=== PATIENT | male | born 1935 | race Caucasian/White ===

== ENCOUNTER 2018-10-19 00:22 | Inpatient (IN) | payer MEDICARE, BC ==
[2018-10-19 00:41] LABS: #Basophils 0.1 thou/uL (0.0-0.2); #Eosinphils 0.1 thou/uL (0.0-0.7); #Lymphocytes 4.3 thou/uL (1.20-3.40); #Monocytes 0.8 thou/uL (0.11-0.59); %Basophils 0.8 % (0.0-1.0); %Eosinophils 0.4 % (0.0-10.0); %Lymphocytes 28.3 % (21.0-51.0); %Monocytes 5.1 % (0.0-10.0); %Neutrophils 65.4 % (42.0-75.0); Hemoglobin 13.7 g/dL (14.0-18.0); Mean Corpuscular Hemoglobin 28.6 pg (27.0-31.0); Mean Corpuscular Volume 89.6 fL (78.0-98.0); Mean Platelet Volume 7.1 fL (7.4-10.4); Platelet Count 209 thou/uL (130-400); RBC Distribution Width 12.4 % (11.5-14.5); Red Blood Cell (RBC) Count 4.77 mill/uL (4.70-6.10); White Blood Cell (WBC) Count 15.3 thou/uL (4.8-10.8)
[2018-10-19 00:57] LABS: ALT (SGPT) 10 U/L (8-55); AST (SGOT) 11 U/L (5-34); Albumin 4.5 g/dL (3.4-4.8); Alkaline Phosphatase 52 U/L (40-150); Anion Gap 14 mmol/L (10-20); BUN (Urea Nitrogen) 17 mg/dL (8.4-25.7); Bilirubin, Total 0.4 mg/dL (0.2-1.2); Calc. Creatinine Clearance 0 mL/min (70-130); Calcium 9.9 mg/dL (7.8-10.44); Carbon Dioxide 25 mmol/L (23-31); Chloride 102 mmol/L (98-107); Estimated GFR-MDRD Greater than 90; Globulin 2.9 g/dL (2.4-3.5); Glucose 119 mg/dL (83-110); Lipase 34 U/L (8-78); Potassium 4.5 mmol/L (3.5-5.1); Protein, Total 7.4 g/dL (5.8-8.1); Sodium 136 mmol/L (136-145)
[2018-10-19] MEDS ORDERED: Lidocaine Viscous Sol 2% 15 ml UD Cup ONE (05:04)
[2018-10-19] MEDS ORDERED: Benzocaine 20% Spray 60 ML CAN ONE (05:04)
--- NOTE | 2018-10-19 05:05 | PDOC.FPRHP ---
- History of Present Illness Chief Complaint: abdominal pain History of Present Illness: 83yo M with pmh of CAD s/p CABG and several abdominal surgeries presents for 6 hour hx of acute onset increasing abdominal pain. Pain is diffuse but with concentration in midline and LLQ. Pt has related nausea but no vomiting, additionally he reprts he feels his abdomen is distented and he has not had a bowel mvmt or passed gas for 2-3 days. ED Course: imaging shows SBO, Surgery called from OR, morphine administered - Allergies/Adverse Reactions Allergies Allergy/AdvReac Type Severity Reaction Status Date / Time No Known Drug Allergies Allergy Verified 10/19/18 07:49 - Home Medications Medication Instructions Recorded Confirmed Type Calcium Carbonate/Vitamin D3 1 tablet PO DAILY 12/08/16 10/19/18 History [Calcium 250 + Vitamin D] Multivitamin/Iron/Folic Acid 1 tablet PO DAILY 12/08/16 10/19/18 History [Centrum Complete Multivitamin] Amlodipine [Norvasc] 5 mg PO DAILY 10/19/18 10/19/18 History Ascorbic Acid [Vitamin C] 1,000 mg PO BID 10/19/18 10/19/18 History Carvedilol 3.125 mg PO BID 10/19/18 10/19/18 History Chlorpheniramine Maleate 4 mg PO QID PRN 10/19/18 10/19/18 History [Chlortabs] Colestipol HCl 1 mg PO DAILY 10/19/18 10/19/18 History Docusate Sodium 100 mg PO DAILY 10/19/18 10/19/18 History Losartan [Cozaar] 25 mg PO BID 10/19/18 10/19/18 History Pravastatin Sodium 20 mg PO HS 10/19/18 10/19/18 History Psyllium Husk [Metamucil] 1 tab PO DAILY 10/19/18 10/19/18 History Simethicone [Gas-X Extra Strength] 125 mg PO QID 10/19/18 10/19/18 History Tamsulosin HCl 0.4 mg PO BID 10/19/18 10/19/18 History guaiFEN/Phenyleph/Acetaminophn 1 - 2 tab PO Q4H PRN 10/19/18 10/19/18 History [Tylenol Sinus Severe Caplet] - History PMHx:SBO (11/2017),CAD, HLD, OA, GERD, chronic back pain, HTN PSHx: laparoscopic lysis of peritoneal adhesions (11/2017),double hernia (10/2017) , hip replacement (05/2010), cholecystectomy (2002), bilateral cataracts, CAD s/ p stents and CABG 4(V)(2006), Right colectomy with reanastomosis 2/2 diverticular bleed? (11/2016), prostatectomy(2003), back surgery (), right knee replacement ) FHx:Father: colon cancer, mother: DM Social:4 oz wine every night, quit smoking 35 years ago, Denies drugs - Review of Systems General: denies: fever/chills, fatigue Eyes: denies: eye pain, vision changes ENT: denies: nasal congestion, rhinorrhea Respiratory: denies: cough, shortness of breath Cardiovascular: denies: chest pain, palpitation Gastrointestinal: reports: nausea, constipation. denies: vomiting, diarrhea, GI bleeding Genitourinary: denies: incontinence, dysuria Skin: denies: rashes, lesions Musculoskeletal: denies: tenderness, stiffness Neurological: denies: syncope, seizure Psychological: denies: anxiety, depression - Vital signs BP: 168/91, Pulse: 93, Resp: 18, O2 sat: 97 on Room Air, Time: 10/19/2018 05:30 - Physical Exam Constitutional: NAD, awake, alert and oriented, other (appears fatigued) HEENT: EOMI, grossly normal vision, grossly normal hearing Neck: supple, trachea midline Chest: no-tender to palpation Heart: RRR, normal S1/S2 Lungs: no respiratory distress, good air movement Abdomen: soft, bowel sounds present, other (impressive TTP in midline and LLQ, modest ttp diffusely) Musculoskeletal: normal structure, normal tone Neurological: no focal deficit, normal sensation Skin: good turgor, capillary refill <2 seconds Heme/Lymphatic: no purpura, no petechia Psychiatric: normal mood and affect, good judgment and insight FMR H&P: Results - Labs Result Diagrams: 10/19/18 00:35 10/19/18 00:35 Lab results: WBC 15.3 thou/uL (4.8-10.8) H 10/19/18 00:35 Hgb 13.7 g/dL (14.0-18.0) L 10/19/18 00:35 Hct 42.7 % (42.0-52.0) 10/19/18 00:35 MCV 89.6 fL (78.0-98.0) 10/19/18 00:35 Plt Count 209 thou/uL (130-400) 10/19/18 00:35 Neutrophils % 65.4 % (42.0-75.0) 10/19/18 00:35 Sodium 136 mmol/L (136-145) 10/19/18 00:35 Potassium 4.5 mmol/L (3.5-5.1) 10/19/18 00:35 Chloride 102 mmol/L (98-107) 10/19/18 00:35 Carbon Dioxide 25 mmol/L (23-31) 10/19/18 00:35 BUN 17 mg/dL (8.4-25.7) 10/19/18 00:35 Creatinine 0.79 mg/dL (0.7-1.3) 10/19/18 00:35 Glucose 119 mg/dL (83-110) H 10/19/18 00:35 Calcium 9.9 mg/dL (7.8-10.44) 10/19/18 00:35 Total Bilirubin 0.4 mg/dL (0.2-1.2) 10/19/18 00:35 AST 11 U/L (5-34) 10/19/18 00:35 ALT 10 U/L (8-55) 10/19/18 00:35 Alkaline Phosphatase 52 U/L (40-150) 10/19/18 00:35 Serum Total Protein 7.4 g/dL (5.8-8.1) 10/19/18 00:35 Albumin 4.5 g/dL (3.4-4.8) 10/19/18 00:35 Lipase 34 U/L (8-78) 10/19/18 00:35 FMR H&P: A/P - Problem List (1) SBO (small bowel obstruction) Current Visit: Yes Status: Acute Code(s): K56.609 - UNSP INTESTNL OBST, UNSP TO PARTIAL VERSUS COMPLETE OBST (2) BPH (benign prostatic hyperplasia) Current Visit: Yes Status: Acute Code(s): N40.0 - BENIGN PROSTATIC HYPERPLASIA WITHOUT LOWER URINRY TRACT SYMP (3) CAD (coronary artery disease) Current Visit: No Status: Chronic Code(s): I25.10 - ATHSCL HEART DISEASE OF [place] CORONARY ARTERY W/O ANG PCTRS Qualifiers: Coronary Disease-Associated Artery/Lesion type: bypass graft [place] vs. transplanted heart: [place] heart Associated angina: without angina Qualified Code(s): I25.810 - Atherosclerosis of coronary artery bypass graft(s) without angina pectoris (4) GERD (gastroesophageal reflux disease) Current Visit: No Status: Chronic Code(s): K21.9 - GASTRO-ESOPHAGEAL REFLUX DISEASE WITHOUT ESOPHAGITIS (5) Hypertension Current Visit: No Status: Chronic Code(s): I10 - ESSENTIAL (PRIMARY) HYPERTENSION Qualifiers: Hypertension type: essential hypertension Qualified Code(s): I10 - Essential (primary) hypertension - Plan SBO A- evidence on imaging, surgery consulted from ED. Recs are much appreciated. P- NPO -NG tube -zofran prn -morphine prn -f/u surgery recs HTN -home meds HLD -home meds BPH -home meds CAD s/p CABG -home meds CODE: DNAR FMR H&P: Upper Level - Pertinent history 83 yr old male with PMH of right colectomy 2/2 suspected diverticular bleed, CAD s/p CABG, After supper last night (about 12 hours ago) he started to get severe abdominal pain. It felt similar to last SBO. Feels nauseated. No vomited. Last BM was 2 days ago. Belching but not pasisng flatus. His abdominal hx includes right colectomy after presumed diverticular bleed in 2016 and SBO with laparoscopic lysis of adhesions in 11/2017. - Pertinent findings Gen: no acute distress Heart: RRR, no M/R/G Lungs: CTAB, no W/R/R Abd: distended, tympanotic, hypoactive bowel sounds, tender worse in the mid periumbilical region. Ext: No edema in BLE Neuro: no focal deficits CT Abd: extensive SBO - Plan Date/Time: 10/19/18 0505 I, [Gladys Hardy], have evaluated this patient and agree with findings/plan as outlined by product managent intern resident. Pertinent changes/additions are listed here. SBO -NG tube to suction -strict NPO -Gen surg consulted from ER -pain control with morphine PRN -most likely 2/2 adhesions from prior abdominal surgeries HTN -cont home meds CAD -cont statin and b nabeel and arb Code: DNR as discussed with patient and
[2018-10-19] MEDS ORDERED: Ondansetron PF 4 MG/2 ML Vial ONE (05:40)
[2018-10-19] MEDS ORDERED: Morphine 4 MG/ML VIAL ONE (05:40)
[2018-10-19 05:44] LABS: Bilirubin Negative (Negative); Blood, Urine Trace (Negative); Clarity CLEAR (Clear); Glucose, Urine (Dipstick) Negative (Negative); Leukocyte Negative (Negative); Nitrite Negative (Negative); Protein, Urine (Dipstick) Negative (Neg-Trace); Urobilinogen 0.2 mg/dL (0.2-1.0); pH, Urine 5.5 (5.0-9.0)
[2018-10-19 05:47] LABS: Bacteria/HPF None Seen HPF (None Seen); Hyaline Casts/LPF 0-3 HYALINE CAST LPF (0-3 Hyaline); Pathc Cast-AUWi Flag 0.27 (0-2.49); Squamous Epithelial None Seen HPF (0-3); WBC/HPF None Seen HPF (0-3)
[2018-10-19 05:49] LABS: Specific Gravity, Urine 1.064 (1.002-1.036)
--- NOTE | 2018-10-19 07:57 | RAD ---
KUB: COMPARISON: None. HISTORY: NG Tube placement. FINDINGS: A single high KUB shows an NG tube in the stomach. There are a few air-filled loops of small bowel i n the visualized upper abdomen. This is a nonspecific bowel gas pattern. Hardware is seen in the spine. The patient is status post sternotomy. IMPRESSION: Nasogastric tube located in the stomach. POS: [facility]
--- NOTE | 2018-10-19 08:23 | CT ---
PRELIMINARY REPORT/[facility]/EMERGENCY AFTER HOURS PROCEDURE: EXAM: CT Abdomen and Pelvis With Contrast EXAM DATE/TIME: 10/19/2018 3:15 AM CLINICAL HISTORY: 83 years old, male; Abdominal pain; Localized; Upper; Prior surgery; Patient HX: Er 4. 83 y/o m, with h/o sbo, presents to ED C/O abd pain and bloating since Thursday, with greatest severity of pain to ep igastrium and ruq. PT notes associated nausea and incr belching. His last bm reported to be "a few da ys ago. " denies vomiting, fever. He is still passing gas. Surgical HX of small bowel obstruction - l aproscopic lysis of adhesions, colonoscopy, surgical history of cholecystectomy, hernia repair, surgical history of prostatectomy, TECHNIQUE: Imaging protocol: Axial computed tomography images of the abdomen and pelvis with intravenous contras t. Coronal reformatted images were created and reviewed. COMPARISON: No relevant prior studies available. FINDINGS: ABDOMEN: Liver: No mass. Gallbladder and bile ducts: Surgical changes of cholecystectomy. No ductal dilation. Pancreas: No mass or ductal dilation. Spleen: No mass. Adrenals: No mass. Kidneys and ureters: Multiple bilateral renal hypodensities, likely cysts. No hydronephrosis. Stomach and bowel: Incidental duodenal diverticulum. Dilated loops of small bowel up to 4.4 cm. The transition point is in the right abdomen (series 601, image 31). Surgical changes of right hemico lectomy. Marked colonic diverticulosis. Appendix: The appendix has been removed. PELVIS: Bladder: Normal. Reproductive: Normal. ABDOMEN and PELVIS: Intraperitoneal space: Trace abdominal and pelvic fluid. Bones/joints: Posterior pedicular screws L1 L2-L3 and L4. Left hip arthroplasty. Soft tissues: Laxity of the anterior abdominal wall. Vasculature: Moderate atherosclerosis of the aorta without aneurysm. Lymph nodes: No lymphadenopathy. IMPRESSION: Small bowel obstruction with loops of bowel dilated up to 4.4 cm. Thank you for allowing us to participate in the care of your patient. Dictated and Authenticated by: Mery Luna MD 10/19/2018 4:30 AM Central Time ([place] & [place]) FINAL REPORT EMERGENCY AFTER HOURS ABDOMEN AND PELVIC CT SCAN WITH IV CONTRAST: Date: 10/19/18 Time: 0317 hours FINDINGS/IMPRESSION: Extensive small bowel obstruction. Status post right hemicolectomy and ileocolonic anastomosis. Exten sive colonic diverticulosis without acute diverticulitis. Multiple renal cysts. Multiple pedicle scre ws stabilizing the spine. Very lax anterior and anterolateral abdominal wall. Other findings as above . Report in agreement with preliminary report given on-call by [facility]. POS: [facility]
[2018-10-19] MEDS: Lactated Ringer's 1,000 ML IV SCH ×3 (08:41→23:48)
--- NOTE | 2018-10-19 09:57 | PDOC.EVN ---
Event Note - Event Note Event Note: consult dictated. Plan non-operative management first. NG, NPO. Small bowel follow through on if not improved.
--- NOTE | 2018-10-19 10:23 | CON ---
DATE OF CONSULTATION: 10/19/2018 CHIEF COMPLAINT: Small bowel obstruction. HISTORY OF PRESENT ILLNESS: This is an 83-year-old male who presents with a history of multiple abdominal operations. He is status post laparoscopic right colectomy by Dr. Rivas. Subsequently had incisional hernia repair and hiatal hernia repair by Dr. Marino over the [facility]. He presents with a few day history of increased abdominal bloating, soreness associated with nausea. Seen in emergency room, where a CAT scan revealed small bowel obstruction. His pain described as 3/10, diffuse, improves. His nausea has improved after NG tube placement. PAST MEDICAL HISTORY: Includes coronary artery disease, hypertension, arthritis, GERD, history of previous small bowel obstruction. PAST SURGICAL HISTORY: Includes laparoscopic lysis of adhesions, incisional hernia repair, hip replacement, cholecystectomy, cataracts, CABG, right colectomy, right knee replacement. FAMILY HISTORY: For GI malignancy only in the father. ALLERGIES: SEE LIST. MEDICINES: See list. SOCIAL HISTORY: Former smoker. One glass of wine daily. REVIEW OF SYSTEMS: 10-system review of systems is otherwise negative unless described above. PHYSICAL EXAMINATION: VITAL SIGNS: Blood pressure is 160/81, pulse 78, respirations 16. HEENT: Sclerae anicteric. Oropharynx clear. NECK: No lymphadenopathy. CHEST: Clear. HEART: Regular rate and rhythm. ABDOMEN: Soft. Diffuse mildly tender without guarding or rebound. Well-healed abdominal incisions. No obvious hernia. EXTREMITIES: No ischemia or edema to extremities. DIAGNOSTIC STUDIES: CT scan shows small bowel obstruction. ASSESSMENT: Small bowel obstruction. PLAN: Continue IV fluids, NG tube decompression for now. Small bowel follow-through within the next few days if does not resolve. No need for urgent operative intervention at this time. Job ID: [id number]
[2018-10-19] MEDS ORDERED: ISOVUE-370 76%-LOCM 1 ML ONE (10:24)
[2018-10-19] MEDS: Ondansetron PF 4 MG/2 ML Vial IVP PRN ×2 (12:12→17:11)
--- NOTE | 2018-10-19 14:05 | HP ---
HISTORY OF PRESENT ILLNESS: I have examined the patient. I have discussed the case with Dr. Giovanni Lynch and I agree with his assessment and plan. Mr. Parikh is a pleasant 83-year-old white man, who has had multiple previous abdominal surgeries. He presented to our institution with a 6-hour history of acute onset of increasing abdominal pain, as well as bloating and distention. He presented to the ER, where subsequent studies revealed the presence of small-bowel obstruction. He is admitted on IV fluids and NG suction. PHYSICAL EXAMINATION: VITAL SIGNS: His blood pressure is 160/90, his pulse rate is 88, respirations are 16. His O2 saturation on room air is 97%. GENERAL: He is awake, alert, in no distress. States he is "feeling better." EAR, NOSE, AND THROAT: Mucous membranes slightly dry. No erythema. No exudate. NECK: Supple. CARDIAC: PMI is in the fifth intercostal space, S4 apical gallop. No murmur or rub noted. LUNGS: Clear without rales, rhonchi, or wheezes. No respiratory distress present. ABDOMEN: Slightly distended and tympanic. Minimally tender with minimal guarding. Bowel sounds diminished. EXTREMITIES: No edema. NEUROLOGIC: Awake, alert, no focal deficits. LABORATORY DATA: [place] [address], hemoglobin 13.7, hematocrit 42.7 with an MCV of 89.6. Chemistries; sodium 136, potassium 4.5, chloride 102, bicarb 25, BUN 17, creatinine 0.79. Glucose 119. Liver enzymes are normal. Abdominal pelvic CT. IMPRESSION: Extensive small bowel obstruction, status post right hemicolectomy and ileocolonic anastomosis. Extensive colonic diverticulosis without evidence of acute diverticulitis. ASSESSMENT: Small-bowel obstruction. PLAN: Admit, IV fluids, NG suctioning, surgical consultation, though doubtful he needs surgery at this time. Job ID: [id number]
[2018-10-19] MEDS: Cepastat Lozenges 1 LOZ PO PRN (17:06)
[2018-10-19] MEDS: Morphine 4 MG/ML VIAL SLOW IVP PRN (23:52)
[2018-10-20 06:20] LABS: #Basophils 0.1 thou/uL (0.0-0.2); #Lymphocytes 3.3 thou/uL (1.20-3.40); #Monocytes 0.8 thou/uL (0.11-0.59); #Neutrophils 3.7 thou/uL (1.40-6.50); %Basophils 0.9 % (0.0-1.0); %Eosinophils 0.6 % (0.0-10.0); %Lymphocytes 41.8 % (21.0-51.0); %Monocytes 10.4 % (0.0-10.0); %Neutrophils 46.3 % (42.0-75.0); Hemoglobin 12.8 g/dL (14.0-18.0); Mean Corpuscular HGB CONC 32.1 g/dL (32.0-36.0); Mean Corpuscular Hemoglobin 29.1 pg (27.0-31.0); Mean Corpuscular Volume 90.7 fL (78.0-98.0); Mean Platelet Volume 7.4 fL (7.4-10.4); Platelet Count 177 thou/uL (130-400); RBC Distribution Width 12.2 % (11.5-14.5)
--- NOTE | 2018-10-20 06:35 | PDOC.FM ---
- Subjective Subjective: No overnight events. Denies pain. Has not had BM. Is passing a little bit of gas. Denies nausea or vomiting. Currently NPO. Ambulating. - Objective MAR Reviewed: Yes Vital Signs & Weight: Vital Signs (12 hours) Temp Pulse Resp BP Pulse Ox 10/20/18 04:19 97.8 F 82 18 149/74 H 94 L 10/19/18 23:52 98.5 F 80 16 168/78 H 94 L 10/19/18 21:00 98.8 F 84 18 158/78 H 94 L Weight Weight 82.554 kg I&O: 10/18/18 10/19/18 10/20/18 06:59 06:59 06:59 Intake Total 1440 Output Total 1050 Balance 390 Result Diagrams: 10/20/18 05:30 10/20/18 05:30 Phys Exam - Physical Examination Constitutional: NAD HEENT: moist MMs Neck: supple Respiratory: no wheezing, clear to auscultation bilateral Cardiovascular: RRR, no significant murmur Gastrointestinal: positive bowel sounds distended, tympanic to percussion. Mildly tender, no rebound/rigidity Musculoskeletal: no edema Neurological: moves all 4 limbs Psychiatric: normal affect, A&O x 3 Skin: no rash Dx/Plan (1) SBO (small bowel obstruction) Code(s): K56.609 - UNSP INTESTNL OBST, UNSP TO PARTIAL VERSUS COMPLETE OBST Status: Acute (2) BPH (benign prostatic hyperplasia) Code(s): N40.0 - BENIGN PROSTATIC HYPERPLASIA WITHOUT LOWER URINRY TRACT SYMP Status: Chronic (3) Osteoarthritis Code(s): M19.90 - UNSPECIFIED OSTEOARTHRITIS, UNSPECIFIED SITE Status: Chronic (4) CAD (coronary artery disease) Code(s): I25.10 - ATHSCL HEART DISEASE OF [place] CORONARY ARTERY W/O ANG PCTRS Status: Chronic Qualifiers: Coronary Disease-Associated Artery/Lesion type: bypass graft [place] vs. transplanted heart: [place] heart Associated angina: without angina Qualified Code(s): I25.810 - Atherosclerosis of coronary artery bypass graft(s) without angina pectoris (5) GERD (gastroesophageal reflux disease) Code(s): K21.9 - GASTRO-ESOPHAGEAL REFLUX DISEASE WITHOUT ESOPHAGITIS Status: Chronic (6) Hypertension Code(s): I10 - ESSENTIAL (PRIMARY) HYPERTENSION Status: Chronic Qualifiers: Hypertension type: essential hypertension Qualified Code(s): I10 - Essential (primary) hypertension - Plan Plan: 83yo male with pmh of HTN, HLD, CAD and BPH presents with SBO SBO - Gen Surg consulted, Dr Garcia. Apprec recs - NPO with NG tube placed - Nonsurgical management. If no improvement by , plan for small bowel follow through - Zofran prn - Morphine prn Microscopic hematuria - F/u with PCP outpt HTN - Resume home meds once tolerating PO HLD - Resume home meds once tolerating PO BPH - Resume home meds once tolerating PO CAD s/p CABG - Resume home meds once tolerating PO Code Status: DNAR DVT ppx: SCDs PCP: AKASH
[2018-10-20 06:43] LABS: Anion Gap 11 mmol/L (10-20); BUN (Urea Nitrogen) 17 mg/dL (8.4-25.7); Calc. Creatinine Clearance 88 mL/min (70-130); Calcium 9.1 mg/dL (7.8-10.44); Carbon Dioxide 28 mmol/L (23-31); Chloride 103 mmol/L (98-107); Estimated GFR-MDRD Greater than 90; Glucose 114 mg/dL (83-110); Sodium 138 mmol/L (136-145)
[2018-10-20] MEDS: Lactated Ringer's 1,000 ML IV SCH ×2 (09:21→19:03)
--- NOTE | 2018-10-20 10:18 | PDOC.GSPN ---
Surgery Progress Note: Subj - Subjective Patient reports: feels better Narrative: No nausea, passed gas Surgery Progress Note: Obj - Vital signs Vital signs: Vital Signs - Most Recent Temp Pulse Resp BP Pulse Ox 98.3 F 73 16 163/77 H 93 L 10/20/18 08:00 10/20/18 08:00 10/20/18 08:00 10/20/18 08:00 10/20/18 08:00 - Physical Exam General: no distress Cardiovascular: regular rate and rhythm Respiratory: clear to auscultation Abdomen: soft (mildly tender, less distended, positive bowel sounds) Surgery Progress Note: Results - Labs Result Diagrams: 10/20/18 05:30 10/20/18 05:30 Lab results: Laboratory Results - last 24 hr 10/20/18 10/20/18 05:30 05:30 WBC 8.0 RBC 4.40 L Hgb 12.8 L Hct 39.9 L MCV 90.7 MCH 29.1 MCHC 32.1 RDW 12.2 Plt Count 177 MPV 7.4 Neutrophils % 46.3 Lymphocytes % 41.8 Monocytes % 10.4 H Eosinophils % 0.6 Basophils % 0.9 Neutrophils # 3.7 Lymphocytes # 3.3 Monocytes # 0.8 H Eosinophils # 0.0 Basophils # 0.1 Sodium 138 Potassium 4.0 Chloride 103 Carbon Dioxide 28 Anion Gap 11 BUN 17 Creatinine 0.74 Estimated GFR (MDRD) Greater than 90 Glucose 114 H Calcium 9.1 Surgery Progress Note: A/P - Problem (1) SBO (small bowel obstruction) Current Visit: Yes Code(s): K56.609 - UNSP INTESTNL OBST, UNSP TO PARTIAL VERSUS COMPLETE OBST Status: Acute Assessment and Plan: Small bowel follow through today
[2018-10-20] MEDS ORDERED: MD-Gastroview 120 ML BOT ONE (11:09)
--- NOTE | 2018-10-20 12:21 | PRG ---
DATE OF SERVICE: 10/20/2018 Mr. Parikh continues to look and feel much better. He still has a tympanic bowel with mild distention. His pain has greatly diminished and his appetite is good. We will proceed with small bowel series today in anticipation of possibly feeding the patient later today with discharge in a day or two. Job ID: [id number]
[2018-10-20] MEDS: Ondansetron PF 4 MG/2 ML Vial IVP PRN ×2 (13:32→19:56)
[2018-10-20] MEDS: Morphine 4 MG/ML VIAL SLOW IVP PRN ×2 (13:32→19:56)
--- NOTE | 2018-10-20 17:13 | RAD ---
CT OF THE ABDOMEN AND PELVIS WITH IV CONTRAST INDICATION: Right lower quadrant abdominal pain COMPARISON: CT of the abdomen and pelvis dated October 30, 2017, May 03, 2016 and February 12, 2016. FINDINGS: ABDOMEN: Lung bases: Clear Liver: Small focal enhancing liver lesion measuring 2.1 cm of the medial left hepatic lobe is stable. Additional smaller enhancing lesion in segment 5 of the right hepatic lobe is not well seen. Small septated cyst of the left hepatic lobe is stable. Gallbladder: Normal appearing. Pancreas: Normal. Adrenal glands: Stable right adrenal adenoma. Left adrenal gland is normal-appearing. Spleen: Normal. Kidneys: Normal. Retroperitoneum of the upper abdomen: No lymphadenopathy or free fluid is identified. Pelvis: Small and large bowel: There is fluid density filling the cecum, ascending colon and portions of the transverse colon. There are a few scattered colonic diverticula without evidence of active diverticulitis. The small bowel is of normal caliber. There is a normal appendix in the right lower q uadrant of the abdomen. Reproductive structures: There is heterogeneous appearance of the uterus suspicious for underlying fi broid disease. Free fluid in pelvis: No free fluid is evident. Lymphadenopathy pelvis: No lymphadenopathy is evident. Vascular structures: Normal. Osseous structures: No acute osseous abnormality. No destructive osteolytic or osteoblastic lesion i s identified. There is scattered degenerative and osteoarthritic changes. IMPRESSION: 1. Fluid density seen involving the right hemicolon may reflect a component of a diarrheal state or m ild colitis. There is a normal appendix in the right lower quadrant of the abdomen. 2. Stable small focal enhancing lesion of the left hepatic lobe is suspicious for small flash filling hemangioma. Smaller lesion previously seen within segment 5 the right hepatic lobe is not well-seen on current examination. Suspected left hepatic lobe cyst is stable. 3. Stable right adrenal adenoma 4. Fibroid uterus 5. Colonic diverticulosis.
[2018-10-21] MEDS: Lactated Ringer's 1,000 ML IV SCH ×2 (03:34→11:08)
--- NOTE | 2018-10-21 06:30 | PDOC.FM ---
- Subjective Subjective: Pain is well controlled. Reports still passing some gas. Denies BM. Plan for surgery later this morning. Is using incentive spirometry. - Objective MAR Reviewed: Yes Vital Signs & Weight: Vital Signs (12 hours) Temp Pulse Resp BP Pulse Ox 10/21/18 04:00 98.4 F 95 20 158/89 H 92 L 10/21/18 00:00 97.4 F L 78 18 169/75 H 93 L 10/20/18 19:35 94 L 10/20/18 19:20 98.3 F 84 20 169/91 H 94 L Weight Admit Weight 82.554 kg Weight 82.809 kg I&O: 10/19/18 10/20/18 10/21/18 06:59 06:59 06:59 Intake Total 2880 2520 Output Total 1050 2300 Balance 1830 220 Result Diagrams: 10/20/18 05:30 10/20/18 05:30 Phys Exam - Physical Examination Constitutional: NAD HEENT: moist MMs Neck: supple Respiratory: no wheezing, clear to auscultation bilateral Cardiovascular: RRR, no significant murmur Gastrointestinal: soft, positive bowel sounds mild tenderness diffusely. Tympanitic to percussion Musculoskeletal: no edema Psychiatric: normal affect, A&O x 3 Skin: no rash Dx/Plan (1) SBO (small bowel obstruction) Code(s): K56.609 - UNSP INTESTNL OBST, UNSP TO PARTIAL VERSUS COMPLETE OBST Status: Acute (2) BPH (benign prostatic hyperplasia) Code(s): N40.0 - BENIGN PROSTATIC HYPERPLASIA WITHOUT LOWER URINRY TRACT SYMP Status: Chronic (3) Osteoarthritis Code(s): M19.90 - UNSPECIFIED OSTEOARTHRITIS, UNSPECIFIED SITE Status: Chronic (4) CAD (coronary artery disease) Code(s): I25.10 - ATHSCL HEART DISEASE OF [place] CORONARY ARTERY W/O ANG PCTRS Status: Chronic Qualifiers: Coronary Disease-Associated Artery/Lesion type: bypass graft [place] vs. transplanted heart: [place] heart Associated angina: without angina Qualified Code(s): I25.810 - Atherosclerosis of coronary artery bypass graft(s) without angina pectoris (5) GERD (gastroesophageal reflux disease) Code(s): K21.9 - GASTRO-ESOPHAGEAL REFLUX DISEASE WITHOUT ESOPHAGITIS Status: Chronic (6) Hypertension Code(s): I10 - ESSENTIAL (PRIMARY) HYPERTENSION Status: Chronic Qualifiers: Hypertension type: essential hypertension Qualified Code(s): I10 - Essential (primary) hypertension - Plan Plan: 83yo male with pmh of HTN, HLD, CAD and BPH presents with SBO SBO - Gen Surg consulted, Dr Garcia. Apprec recs - NPO with NG tube placed - Small bowel follow through preformed 10/21. - Plan for surgery today. - Zofran prn - Morphine prn Microscopic hematuria - F/u with PCP outpt HTN - Resume home meds once tolerating PO HLD - Resume home meds once tolerating PO BPH - Resume home meds once tolerating PO CAD s/p CABG - Resume home meds once tolerating PO Code Status: DNAR DVT ppx: SCDs PCP: AKASH
--- NOTE | 2018-10-21 07:49 | RAD ---
SMALL BOWEL FOLLOW THROUGH 10/20/18 INDICATION: Small bowel obstruction. COMPARISON: Prior CT of the abdomen and pelvis dated 10/19/18. FINDINGS: There is gradual progression of gastrografin contrast from the level of the stomach through the smal l intestine. There is eventual filling of the dilated loops of small bowel within the central abdomen . Imaging was performed through a time period of up to 7 hours with no visualization of contrast opac ification of the colon. IMPRESSION: Findings most consistent with a high grade partial small bowel obstruction. There is no appreciable c ontrast seen extending into the colon or rectum up to the time period. Findings were called to the fl oor by Dr. Paredes to the treating nurse indicating that this is a high grade small bowel obstruction. POS: BH
--- NOTE | 2018-10-21 08:57 | PDOC.GSPN ---
Surgery Progress Note: Subj - Subjective Narrative: SBFT showed no contrast to colon. Very distended and SBFT had to be stopped early Surgery Progress Note: Obj - Vital signs Vital signs: Vital Signs - Most Recent Temp Pulse Resp BP Pulse Ox 98.4 F 83 22 H 153/76 H 93 L 10/21/18 07:59 10/21/18 07:59 10/21/18 07:59 10/21/18 07:59 10/21/18 07:59 - Physical Exam General: no distress Respiratory: clear to auscultation Abdomen: soft, other (Distended with decreased bowel sounds) Surgery Progress Note: Results - Labs Result Diagrams: 10/20/18 05:30 10/20/18 05:30 Surgery Progress Note: A/P - Problem (1) SBO (small bowel obstruction) Current Visit: Yes Code(s): K56.609 - UNSP INTESTNL OBST, UNSP TO PARTIAL VERSUS COMPLETE OBST Status: Acute - Plan Plan: SBFT showed no contrast to colon -Ex lap with lysis of adhesions today
[2018-10-21] MEDS ORDERED: Fentanyl 100 MCG/2 ML VIAL ONE (11:17)
[2018-10-21] MEDS ORDERED: Fentanyl 250 MCG/5 ML VIAL ONE (11:17)
[2018-10-21] MEDS ORDERED: Ondansetron HCl/PF 4 MG/2 ML Vial IVP PRN ×2 (12:02→13:45)
[2018-10-21] MEDS ORDERED: Promethazine HCl 25 MG/ML VIAL IM PRN (13:45)
[2018-10-21] MEDS ORDERED: Promethazine HCl 25 MG/ML VIAL SLOW IVP PRN (13:45)
--- NOTE | 2018-10-21 14:04 | PRG ---
DATE OF SERVICE: 10/21/2018 Mr. Parikh's small-bowel follow-through unfortunately shows a persistent high-grade partial small-bowel obstruction, which has been treated conservatively now for [address] Garcia plans on taking him back to surgery in the late morning. We will continue to follow with him. Job ID: [id number]
[2018-10-21] MEDS ORDERED: Acetaminophen 1,000 MG in Premix Bag 1 BAG IVPB PRN (15:25)
[2018-10-21] MEDS ORDERED: Fentanyl 100 MCG/2 ML VIAL SLOW IVP PRN ×2 (15:25)
[2018-10-21] MEDS ORDERED: hydrALAZINE 20 MG/ML VIAL SLOW IVP PRN (15:25)
[2018-10-21] MEDS: D5 1/2 NS w/20 mEq KCL 1,000 ML IV SCH (16:05)
[2018-10-21] MEDS ORDERED: Rocuronium Bromide 10 MG/ML (10ML VIAL) ONE (16:13)
[2018-10-21] MEDS ORDERED: PROPOFOL 200 MG/20 ML VIAL ONE (16:13)
[2018-10-21] MEDS ORDERED: Succinylcholine Chloride 20 MG/ML 10 ml SYRINGE FS ONE (16:13)
[2018-10-21] MEDS ORDERED: Ketorolac Tromethamine 30 MG/ML VIAL ONE (16:13)
[2018-10-21] MEDS ORDERED: Lidocaine 1% PF 5 ML VIAL ONE (16:13)
[2018-10-21] MEDS ORDERED: Glycopyrrolate 0.2 MG/ML 5 ML SYRINGE ONE (16:13)
[2018-10-21] MEDS ORDERED: Ondansetron PF 4 MG/2 ML Vial ONE (16:13)
[2018-10-21] MEDS ORDERED: PHENYLEPHRINE-NS 100 MCG/ML 10 ML SYRINGE ONE (16:13)
[2018-10-21] MEDS: Chloraseptic Spray 180 ml Bottle PO PRN (20:58)
--- NOTE | 2018-10-21 20:58 | OP ---
DATE OF PROCEDURE: 10/21/2018 PREOPERATIVE DIAGNOSIS: Small bowel obstruction. POSTOPERATIVE DIAGNOSIS: Small bowel obstruction. PROCEDURES PERFORMED: Exploratory laparotomy, lysis of adhesions. ANESTHESIA: General. ESTIMATED BLOOD LOSS: Minimal. COMPLICATION: None. SPECIMEN: None. FINDINGS: There was an area in the right upper abdomen, where the intestine was kinked at its obstruction point on the posterior mesh. This was taken down without injury. DESCRIPTION OF PROCEDURE: The patient was taken to the operating room and laid supine on the operating room table. After general anesthetic was obtained, a Kwan was placed. The abdomen was shaved, prepped, and draped in a sterile fashion. Midline incision was made, cutting through the most inferior aspect of the mesh. Adhesions were taken down in the posterior abdominal wall. There was one area of full-thickness injury to the small bowel during this portion of the procedure. There was no leakage. This was closed using full-thickness 3-0 Vicryls followed by 3-0 serosal silk sutures. The rest of the adhesions were all taken down without injury to the intestine. The small bowel was run distally to an area where there was a knuckle of intestine stuck to the right upper quadrant posterior mesh. This was taken down sharply without full-thickness injury. A serosal tear was oversewn using silk suture. The decompressed small bowel was then encountered. The small bowel was then marched all the way to the ileocecal valve all the way proximal to the ligament of Treitz without any further evidence of obstruction. Some of the small bowel contents were milked back into the stomach and the NG tube was felt to be in good position. Seprafilm was placed in the abdomen. All instrument counts, needle counts, and lap counts were correct. The fascia was closed using #1 PDS from the top to the bottom, tied in the middle. Subcutaneous tissues were irrigated and closed using 3-0 Vicryl, 4-0 Monocryl, and Dermabond. The patient was then returned to Recovery in stable condition. All instrument counts, needle counts, and lap counts were correct. Job ID: [id number]
[2018-10-21] MEDS: Cepastat Lozenges 1 LOZ PO PRN (20:59)
[2018-10-22] MEDS: D5 1/2 NS w/20 mEq KCL 1,000 ML IV SCH ×3 (01:51→23:16)
[2018-10-22] MEDS: Chloraseptic Spray 180 ml Bottle PO PRN ×2 (01:57→06:20)
[2018-10-22 05:02] LABS: #Lymphocytes 2.4 thou/uL (1.20-3.40); #Monocytes 0.7 thou/uL (0.11-0.59); #Neutrophils 5.5 thou/uL (1.40-6.50); %Basophils 0.3 % (0.0-1.0); %Eosinophils 0.2 % (0.0-10.0); %Lymphocytes 27.9 % (21.0-51.0); %Monocytes 7.9 % (0.0-10.0); %Neutrophils 63.6 % (42.0-75.0); Hemoglobin 12.9 g/dL (14.0-18.0); Mean Corpuscular HGB CONC 31.9 g/dL (32.0-36.0); Mean Corpuscular Hemoglobin 29.3 pg (27.0-31.0); Mean Corpuscular Volume 91.9 fL (78.0-98.0); Mean Platelet Volume 7.5 fL (7.4-10.4); Platelet Count 177 thou/uL (130-400); RBC Distribution Width 12.3 % (11.5-14.5); Red Blood Cell (RBC) Count 4.41 mill/uL (4.70-6.10); White Blood Cell (WBC) Count 8.7 thou/uL (4.8-10.8)
[2018-10-22 05:25] LABS: Anion Gap 11 mmol/L (10-20); BUN (Urea Nitrogen) 18 mg/dL (8.4-25.7); Calc. Creatinine Clearance 90 mL/min (70-130); Calcium 8.5 mg/dL (7.8-10.44); Carbon Dioxide 29 mmol/L (23-31); Chloride 103 mmol/L (98-107); Estimated GFR-MDRD Greater than 90; Glucose 135 mg/dL (83-110); Potassium 3.7 mmol/L (3.5-5.1); Sodium 139 mmol/L (136-145)
--- NOTE | 2018-10-22 06:33 | PDOC.FM ---
- Subjective Subjective: Doing well this morning. Pain is controlled. Has been ambulating to bathroom. Had bowel movement this morning. NG tube with minimal drainage overnight. Has been eating ice chips only and tolerating well. - Objective MAR Reviewed: Yes Vital Signs & Weight: Vital Signs (12 hours) Temp Pulse Resp BP Pulse Ox 10/22/18 04:00 97.8 F 87 18 140/82 93 L 10/22/18 00:00 98 F 88 18 144/76 H 94 L 10/21/18 20:00 98.4 F 79 18 163/72 H 92 L Weight Admit Weight 82.554 kg Weight 83.915 kg I&O: 10/20/18 10/21/18 10/22/18 06:59 06:59 06:59 Intake Total 2880 2520 2100 Output Total 1050 2300 975 Balance 0125 219 0581 Result Diagrams: 10/22/18 04:22 10/22/18 04:22 Phys Exam - Physical Examination Constitutional: NAD HEENT: moist MMs Neck: supple Respiratory: no wheezing, clear to auscultation bilateral Cardiovascular: RRR, no significant murmur Gastrointestinal: positive bowel sounds distended, mildly tender. No rebound or rigidity Musculoskeletal: no edema Neurological: moves all 4 limbs Psychiatric: normal affect, A&O x 3 Skin: no rash Dx/Plan (1) SBO (small bowel obstruction) Code(s): K56.609 - UNSP INTESTNL OBST, UNSP TO PARTIAL VERSUS COMPLETE OBST Status: Acute (2) BPH (benign prostatic hyperplasia) Code(s): N40.0 - BENIGN PROSTATIC HYPERPLASIA WITHOUT LOWER URINRY TRACT SYMP Status: Chronic (3) Osteoarthritis Code(s): M19.90 - UNSPECIFIED OSTEOARTHRITIS, UNSPECIFIED SITE Status: Chronic (4) CAD (coronary artery disease) Code(s): I25.10 - ATHSCL HEART DISEASE OF [place] CORONARY ARTERY W/O ANG PCTRS Status: Chronic Qualifiers: Coronary Disease-Associated Artery/Lesion type: bypass graft [place] vs. transplanted heart: [place] heart Associated angina: without angina Qualified Code(s): I25.810 - Atherosclerosis of coronary artery bypass graft(s) without angina pectoris (5) GERD (gastroesophageal reflux disease) Code(s): K21.9 - GASTRO-ESOPHAGEAL REFLUX DISEASE WITHOUT ESOPHAGITIS Status: Chronic (6) Hypertension Code(s): I10 - ESSENTIAL (PRIMARY) HYPERTENSION Status: Chronic Qualifiers: Hypertension type: essential hypertension Qualified Code(s): I10 - Essential (primary) hypertension - Plan Plan: 83yo male with pmh of HTN, HLD, CAD and BPH presents with SBO SBO - Gen Surg consulted, Dr Garcia. Apprec recs - Ice chips only with NG tube placed - Small bowel follow through preformed 10/20 - Ex lap with obstruction reduction on 10/21 - Zofran prn - Fentanyl prn Microscopic hematuria - F/u with PCP outpt HTN - Resume home meds once tolerating PO HLD - Resume home meds once tolerating PO BPH - Resume home meds once tolerating PO CAD s/p CABG - Resume home meds once tolerating PO Code Status: DNAR DVT ppx: SCDs PCP: AKASH
[2018-10-22] MEDS: Ondansetron PF 4 MG/2 ML Vial IVP PRN ×2 (10:02→16:38)
--- NOTE | 2018-10-22 12:10 | PDOC.GSPN ---
Surgery Progress Note: Subj - Subjective Narrative: c/o nausea, pain controlled Surgery Progress Note: Obj - Vital signs Vital signs: Vital Signs - Most Recent Temp Pulse Resp BP Pulse Ox 98.4 F 86 18 173/83 H 92 L 10/22/18 10:58 10/22/18 10:58 10/22/18 10:58 10/22/18 10:58 10/22/18 10:58 - Physical Exam General: no distress Cardiovascular: regular rate and rhythm Respiratory: clear to auscultation Abdomen: soft, appropriately tender Wound: healing well Surgery Progress Note: Results - Labs Result Diagrams: 10/22/18 04:22 10/22/18 04:22 Lab results: Laboratory Results - last 24 hr 10/22/18 10/22/18 04:22 04:22 WBC 8.7 RBC 4.41 L Hgb 12.9 L Hct 40.6 L MCV 91.9 MCH 29.3 MCHC 31.9 L RDW 12.3 Plt Count 177 MPV 7.5 Neutrophils % 63.6 Lymphocytes % 27.9 Monocytes % 7.9 Eosinophils % 0.2 Basophils % 0.3 Neutrophils # 5.5 Lymphocytes # 2.4 Monocytes # 0.7 H Eosinophils # 0.0 Basophils # 0.0 Sodium 139 Potassium 3.7 Chloride 103 Carbon Dioxide 29 Anion Gap 11 BUN 18 Creatinine 0.74 Estimated GFR (MDRD) Greater than 90 Glucose 135 H Calcium 8.5 Surgery Progress Note: A/P - Problem (1) SBO (small bowel obstruction) Current Visit: Yes Code(s): K56.609 - UNSP INTESTNL OBST, UNSP TO PARTIAL VERSUS COMPLETE OBST Status: Acute - Plan Plan: POD 1 ex lap SAMUEL -check placement NG with Kub -continue to ambulate -DC NG when nausea improved. -Dr. Rivas covering for me this weekend
[2018-10-22] MEDS ORDERED: Promethazine HCl 25 MG/ML VIAL IM PRN (12:11)
--- NOTE | 2018-10-22 12:58 | PRG ---
DATE OF SERVICE: 10/22/2018 Mr. Parikh was taken to surgery yesterday and underwent lysis of adhesions with Dr. Garcia. This morning, he is having some nausea, but no significant abdominal pain. He has NG suctioning in place. His white count is 8700 with a hemoglobin of 12.9. Chemistry; sodium is 139, potassium 3.7, chloride 103, bicarb 29, BUN 18, creatinine 0.74, and glucose is 135. Vital signs are stable with a blood pressure of 170/86 and a pulse rate of 86. ASSESSMENT: Postoperative day 1, the patient is having some nausea, but otherwise stable. We will continue to follow with Dr. Garcia. Job ID: [id number]
--- NOTE | 2018-10-22 13:30 | RAD ---
KUB: COMPARISON: 10/19/2018. HISTORY: NG tube placement. FINDINGS: A single view of the abdomen shows a nonspecific, nonobstructed bowel gas pattern. An NG tube is see n with its tip at the gastroesophageal junction. The stomach is still distended with air. Hardware is seen in the spine. IMPRESSION: Nasogastric tube with its tip at the gastroesophageal junction. This needs to be advanced approximat rhonda 5 more centimeters. POS: TPC
--- NOTE | 2018-10-22 16:33 | RAD ---
Exam: 1 view abdomen COMPARISON: 10/22/2018 at 12:53 PM HISTORY: NG tube placement. FINDINGS: Redemonstration of NG tube which has curled and is terminating in the esophagus. There is p ersistent gastric distention and distention of the small bowel. IMPRESSION: 1. NG tube, terminating in the mid to distal esophagus. NG tube curled at the level of GE junction. 2. Persistent small bowel and gastric distention. Results study discussed with Christina, patient's nurse 10/22/2018 at 4:28 PM Code CR
--- NOTE | 2018-10-22 20:00 | RAD ---
SUPINE ABDOMEN: 10/22/18 INDICATIONS: Gaseous distention of the stomach and bowel. Attempted NG tube placement. FINDINGS/IMPRESSION: NG tube is coiled in the lower esophagus. There is prominent gaseous distention of the stomach. POS: OFF
--- NOTE | 2018-10-22 20:20 | RAD ---
PROCEDURE: Fluoroscopic guided placement of NG tube. INDICATIONS: NG tube was unable to be placed on the floor. Fluoroscopic assistance was requested. FINDINGS: 18 gauge NG tube was introduced into the left nostril. This NG tube was advanced into the esophagus w ithout difficulty under fluoroscopic observation. The tube was advanced through the EG junction into the stomach without difficulty. Tip of the tube was advanced into the region of the gastric antrum. F luoroscopy confirmed position. IMPRESSION: Fluoroscopic guided placement of NG tube. POS: OFF
[2018-10-23] MEDS: Chloraseptic Spray 180 ml Bottle PO PRN ×2 (01:44→21:34)
--- NOTE | 2018-10-23 06:39 | PDOC.FM ---
- Subjective Subjective: Feeling much better than yesterday. Nausea has improved. Pain is well controlled. Still reports postintubation throat pain. Had diarrhea this morning. - Objective MAR Reviewed: Yes Vital Signs & Weight: Vital Signs (12 hours) Temp Pulse Resp BP Pulse Ox 10/23/18 04:00 98.6 F 82 18 112/76 94 L 10/23/18 00:00 98 F 83 18 149/73 H 94 L 10/22/18 20:00 97.6 F 90 18 163/73 H 93 L Weight Admit Weight 82.554 kg Weight 84.368 kg I&O: 10/21/18 10/22/18 10/23/18 06:59 06:59 06:59 Intake Total 2520 2100 1000 Output Total 2300 975 950 Balance 220 1125 50 Result Diagrams: 10/22/18 04:22 10/23/18 08:16 Phys Exam - Physical Examination Constitutional: NAD HEENT: moist MMs Neck: supple Respiratory: no wheezing, clear to auscultation bilateral Cardiovascular: RRR, no significant murmur Gastrointestinal: positive bowel sounds distended. mildly tender no rebound or rigidity Musculoskeletal: no edema Neurological: moves all 4 limbs Psychiatric: normal affect, A&O x 3 Skin: normal turgor Dx/Plan (1) SBO (small bowel obstruction) Code(s): K56.609 - UNSP INTESTNL OBST, UNSP TO PARTIAL VERSUS COMPLETE OBST Status: Acute (2) BPH (benign prostatic hyperplasia) Code(s): N40.0 - BENIGN PROSTATIC HYPERPLASIA WITHOUT LOWER URINRY TRACT SYMP Status: Chronic (3) Osteoarthritis Code(s): M19.90 - UNSPECIFIED OSTEOARTHRITIS, UNSPECIFIED SITE Status: Chronic (4) CAD (coronary artery disease) Code(s): I25.10 - ATHSCL HEART DISEASE OF [place] CORONARY ARTERY W/O ANG PCTRS Status: Chronic Qualifiers: Coronary Disease-Associated Artery/Lesion type: bypass graft [place] vs. transplanted heart: [place] heart Associated angina: without angina Qualified Code(s): I25.810 - Atherosclerosis of coronary artery bypass graft(s) without angina pectoris (5) GERD (gastroesophageal reflux disease) Code(s): K21.9 - GASTRO-ESOPHAGEAL REFLUX DISEASE WITHOUT ESOPHAGITIS Status: Chronic (6) Hypertension Code(s): I10 - ESSENTIAL (PRIMARY) HYPERTENSION Status: Chronic Qualifiers: Hypertension type: essential hypertension Qualified Code(s): I10 - Essential (primary) hypertension - Plan Plan: 83yo male with pmh of HTN, HLD, CAD and BPH presents with SBO SBO - Gen Surg consulted, Dr Garcia. Apprec recs - Ice chips only with NG tube placed - Small bowel follow through preformed 10/20 - Ex lap with obstruction reduction on 10/21 - Zofran prn - Fentanyl prn Microscopic hematuria - F/u with PCP outpt HTN - Resume home meds once tolerating PO HLD - Resume home meds once tolerating PO BPH - Resume home meds once tolerating PO CAD s/p CABG - Resume home meds once tolerating PO Code Status: DNAR DVT ppx: SCDs PCP: AKASH Gutierrez - Attending - Attending Attestation Date/Time: 10/23/18 0489 I personally evaluated the patient and discussed the management with Dr. Domínguez I agree with the History, Examination, Assessment and Plan documented above with any addition or exceptions noted below. Post op making continued progress continues with NGT advance per General Surgery recommendations. Patient with BM today abdomen soft.
[2018-10-23] MEDS: D5 1/2 NS w/20 mEq KCL 1,000 ML IV SCH ×3 (07:40→20:15)
[2018-10-23 08:50] LABS: Anion Gap 9 mmol/L (10-20); BUN (Urea Nitrogen) 14 mg/dL (8.4-25.7); Calc. Creatinine Clearance 97 mL/min (70-130); Calcium 8.5 mg/dL (7.8-10.44); Carbon Dioxide 27 mmol/L (23-31); Chloride 106 mmol/L (98-107); Estimated GFR-MDRD Greater than 90; Glucose 122 mg/dL (83-110); Potassium 3.5 mmol/L (3.5-5.1); Sodium 138 mmol/L (136-145)
--- NOTE | 2018-10-23 21:33 | PRG ---
DATE OF SERVICE: 10/23/2018 SUBJECTIVE: Pietro Parikh is doing well after 10/19/2018, exploratory laparotomy and lysis of adhesions. The patient had difficulty in NG tube location he understand and it was placed under fluoroscopic guidance by radiologist. My initial efforts were unsuccessful. No laboratories this morning. The patient's gastric drainage overnight is 1700 mL. Output Kwan 1000. OBJECTIVE: LUNGS: Clear to auscultation. CARDIAC: Regular rate and rhythm without murmur or gallop. ABDOMEN: Distended. Tympanitic, soft and nontender. Wound looks good. The patient has a few bowel sounds. He reports having passed flatus. ASSESSMENT AND PLAN: Ileus is hopefully resolving. NG tube output is too high to consider removing the NG tube. Continue mobility. Reassess NG tube output and bowel function tomorrow. Job ID: [id number]
[2018-10-24] MEDS: D5 1/2 NS w/20 mEq KCL 1,000 ML IV SCH ×3 (05:15→20:21)
[2018-10-24] MEDS: Cepastat Lozenges 1 LOZ PO PRN (06:25)
--- NOTE | 2018-10-24 06:26 | PDOC.FM ---
- Subjective Subjective: No overnight events. Continues to have a lot of output out of NG tube. Denies nausea or pain. Has been ambulating, 2 BMs yesterday and has been passing gas. - Objective MAR Reviewed: Yes Vital Signs & Weight: Vital Signs (12 hours) Temp Pulse Resp BP BP Pulse Ox 10/24/18 04:00 98.1 F 74 16 131/65 94 L 10/24/18 00:00 98.2 F 73 16 126/69 94 L 10/23/18 21:00 77 135/77 10/23/18 20:00 98.5 F 72 14 135/77 95 Weight Admit Weight 82.554 kg Weight 80.739 kg I&O: 10/22/18 10/23/18 10/24/18 06:59 06:59 06:59 Intake Total 2100 2200 3040 Output Total 975 2700 4400 Balance 1125 -500 -6330 Result Diagrams: 10/22/18 04:22 10/23/18 08:16 Phys Exam - Physical Examination Constitutional: NAD HEENT: moist MMs Neck: supple Respiratory: no wheezing, clear to auscultation bilateral Cardiovascular: RRR, no significant murmur Gastrointestinal: positive bowel sounds Distended. Much softer than days prio. Mild tenderness. No rebound rigidity Musculoskeletal: no edema Neurological: moves all 4 limbs Psychiatric: normal affect, A&O x 3 Skin: no rash Dx/Plan (1) SBO (small bowel obstruction) Code(s): K56.609 - UNSP INTESTNL OBST, UNSP TO PARTIAL VERSUS COMPLETE OBST Status: Acute (2) BPH (benign prostatic hyperplasia) Code(s): N40.0 - BENIGN PROSTATIC HYPERPLASIA WITHOUT LOWER URINRY TRACT SYMP Status: Chronic (3) Osteoarthritis Code(s): M19.90 - UNSPECIFIED OSTEOARTHRITIS, UNSPECIFIED SITE Status: Chronic (4) CAD (coronary artery disease) Code(s): I25.10 - ATHSCL HEART DISEASE OF [place] CORONARY ARTERY W/O ANG PCTRS Status: Chronic Qualifiers: Coronary Disease-Associated Artery/Lesion type: bypass graft [place] vs. transplanted heart: [place] heart Associated angina: without angina Qualified Code(s): I25.810 - Atherosclerosis of coronary artery bypass graft(s) without angina pectoris (5) GERD (gastroesophageal reflux disease) Code(s): K21.9 - GASTRO-ESOPHAGEAL REFLUX DISEASE WITHOUT ESOPHAGITIS Status: Chronic (6) Hypertension Code(s): I10 - ESSENTIAL (PRIMARY) HYPERTENSION Status: Chronic Qualifiers: Hypertension type: essential hypertension Qualified Code(s): I10 - Essential (primary) hypertension - Plan Plan: 83yo male with pmh of HTN, HLD, CAD and BPH presents with SBO SBO - Gen Surg consulted, Apprec recs - NG tube in place, 2500 output over last day - Ex lap with obstruction reduction on 10/21 - Zofran & Fentanyl prn Microscopic hematuria - F/u with PCP outpt HTN - Resume home meds once tolerating PO HLD - Resume home meds once tolerating PO BPH - Resume home meds once tolerating PO CAD s/p CABG - Resume home meds once tolerating PO Code Status: DNAR DVT ppx: SCDs PCP: AKASH Addendum - Attending - Attending Attestation Date/Time: 10/24/18 3159 I personally evaluated the patient and discussed the management with I agree with the History, Examination, Assessment and Plan documented above with any addition or exceptions noted below. POD #3 amb[address] to [address] still reported significant NG outpt patient denies Nausea advance per Surgery.
[2018-10-24] MEDS: Chloraseptic Spray 180 ml Bottle PO PRN (08:18)
[2018-10-24] MEDS ORDERED: diphenhydrAMINE 50 MG/ML VIAL IVP PRN (13:08)
--- NOTE | 2018-10-24 17:05 | PRG ---
DATE OF SERVICE: 10/24/2018 SUBJECTIVE: Mr. Parikh is doing well today. He is having bowel movements, passing flatus; however, his NG-tube output, which is properly positioned, has put out 2.6 L in the last 24 hours is feculent in appearance. He denies having any pain. He is urinating without his Kwan catheter removed yesterday. OBJECTIVE: VITAL SIGNS: 97.9, 73, and 160/81. HEAD, EYES, EARS, NOSE, AND THROAT: Unremarkable. LUNGS: Clear to auscultation. CARDIAC: Regular rate and rhythm without murmur or gallop. ABDOMEN: Soft. Positive bowel sounds. Mildly distended, mildly tympanitic, and nontender. Surgical wound looks good. EXTREMITIES: Unremarkable. ASSESSMENT AND PLAN: Recent laparotomy for bowel obstruction, adhesiolysis, continues high output NG-tube, contradicting bowel movements and gas. Leave NG-tube for now. Obtain abdominal x-rays 3-view tomorrow and Dr. Garcia may want to perform a small bowel followthrough pending findings. We will leave that decision to him. We will recheck his laboratories tomorrow due to his high NG-tube output. Job ID: [id number]
[2018-10-25 05:35] LABS: #Basophils 0.1 thou/uL (0.0-0.2); #Eosinphils 0.3 thou/uL (0.0-0.7); #Lymphocytes 3.7 thou/uL (1.20-3.40); #Monocytes 0.7 thou/uL (0.11-0.59); #Neutrophils 5.9 thou/uL (1.40-6.50); %Basophils 0.7 % (0.0-1.0); %Eosinophils 2.6 % (0.0-10.0); %Lymphocytes 34.3 % (21.0-51.0); %Monocytes 6.9 % (0.0-10.0); %Neutrophils 55.5 % (42.0-75.0); Hemoglobin 12.7 g/dL (14.0-18.0); Mean Corpuscular HGB CONC 32.2 g/dL (32.0-36.0); Mean Corpuscular Volume 90.1 fL (78.0-98.0); Mean Platelet Volume 7.3 fL (7.4-10.4); Platelet Count 193 thou/uL (130-400); Red Blood Cell (RBC) Count 4.36 mill/uL (4.70-6.10); White Blood Cell (WBC) Count 10.7 thou/uL (4.8-10.8)
[2018-10-25 05:57] LABS: ALT (SGPT) 10 U/L (8-55); AST (SGOT) 11 U/L (5-34); Albumin 3.5 g/dL (3.4-4.8); Alkaline Phosphatase 44 U/L (40-150); Anion Gap 11 mmol/L (10-20); BUN (Urea Nitrogen) 9 mg/dL (8.4-25.7); Bilirubin, Total 0.7 mg/dL (0.2-1.2); Calc. Creatinine Clearance 90 mL/min (70-130); Calcium 8.8 mg/dL (7.8-10.44); Carbon Dioxide 28 mmol/L (23-31); Chloride 102 mmol/L (98-107); Estimated GFR-MDRD Greater than 90; Globulin 2.5 g/dL (2.4-3.5); Glucose 106 mg/dL (83-110); Potassium 3.3 mmol/L (3.5-5.1); Sodium 138 mmol/L (136-145)
--- NOTE | 2018-10-25 06:41 | PDOC.FM ---
- Subjective Subjective: Feels better today. Having bowel movements and ambulating. Denies nausea, fever. Ordered clear liquid breakfast. - Objective MAR Reviewed: Yes Vital Signs & Weight: Vital Signs (12 hours) Temp Pulse Resp BP BP Pulse Ox 10/25/18 04:42 98.6 F 76 16 155/83 H 95 10/25/18 00:00 98.2 F 74 16 161/80 H 95 10/24/18 20:00 98.5 F 75 16 162/77 H 95 Weight Admit Weight 82.554 kg Weight 80.739 kg I&O: 10/23/18 10/24/18 10/25/18 06:59 06:59 06:59 Intake Total 2200 3040 1201 Output Total 2700 4500 Balance -500 -1460 1201 Result Diagrams: 10/25/18 04:54 10/25/18 04:54 Phys Exam - Physical Examination Constitutional: NAD HEENT: moist MMs Neck: supple Respiratory: no wheezing, clear to auscultation bilateral Cardiovascular: RRR, no significant murmur Gastrointestinal: non-tender, positive bowel sounds Much less distended Musculoskeletal: no edema Neurological: moves all 4 limbs Psychiatric: normal affect, A&O x 3 Skin: no rash Dx/Plan (1) SBO (small bowel obstruction) Code(s): K56.609 - UNSP INTESTNL OBST, UNSP TO PARTIAL VERSUS COMPLETE OBST Status: Acute (2) BPH (benign prostatic hyperplasia) Code(s): N40.0 - BENIGN PROSTATIC HYPERPLASIA WITHOUT LOWER URINRY TRACT SYMP Status: Chronic (3) Osteoarthritis Code(s): M19.90 - UNSPECIFIED OSTEOARTHRITIS, UNSPECIFIED SITE Status: Chronic (4) CAD (coronary artery disease) Code(s): I25.10 - ATHSCL HEART DISEASE OF [place] CORONARY ARTERY W/O ANG PCTRS Status: Chronic Qualifiers: Coronary Disease-Associated Artery/Lesion type: bypass graft [place] vs. transplanted heart: [place] heart Associated angina: without angina Qualified Code(s): I25.810 - Atherosclerosis of coronary artery bypass graft(s) without angina pectoris (5) GERD (gastroesophageal reflux disease) Code(s): K21.9 - GASTRO-ESOPHAGEAL REFLUX DISEASE WITHOUT ESOPHAGITIS Status: Chronic (6) Hypertension Code(s): I10 - ESSENTIAL (PRIMARY) HYPERTENSION Status: Chronic Qualifiers: Hypertension type: essential hypertension Qualified Code(s): I10 - Essential (primary) hypertension - Plan Plan: 83yo male with pmh of HTN, HLD, CAD and BPH presents with SBO SBO, POD #4 - Gen Surg consulted, Apprec recs - Ex lap with obstruction reduction on 10/21 - NG tube removed today, high output was due to placement in duodenum - Clear liquid diet - Zofran & Fentanyl prn Microscopic hematuria - F/u with PCP outpt HTN - Resume home meds once tolerating PO - PRNs available HLD - Resume home meds once tolerating PO BPH - Resume home meds once tolerating PO CAD s/p CABG - Resume home meds once tolerating PO Code Status: DNAR DVT ppx: SCDs PCP: AKASH Addmalindaum - Attending - Attending Attestation Date/Time: 10/25/18 2743 I personally evaluated the patient and discussed the management with Dr. Domínguez. I agree with the History, Examination, Assessment and Plan documented above with any addition or exceptions noted below. The patient's ng tube has been removed. will start with clear liquids and progress as tolerated.
[2018-10-25] MEDS: Chloraseptic Spray 180 ml Bottle PO PRN (07:55)
[2018-10-25] MEDS: D5 1/2 NS w/20 mEq KCL 1,000 ML IV SCH (07:55)
[2018-10-25] MEDS ORDERED: D5 1/2 NS w/20 mEq KCL 1,000 ML IV SCH (09:22)
--- NOTE | 2018-10-25 09:23 | RAD ---
ABDOMINAL SURVEY WITH UPRIGHT CHEST AND 2 VIEW ABDOMEN: INDICATION: Followup laparotomy. Adhesion lysis. FINDINGS: Upright film shows the lungs to be clear. Air under the right hemidiaphragm is consistent with posto perative status post. NG tube is coiled within the stomach with tip overlying the region of the haylee teresa antrum. Scattered small bowel gas without significant small bowel dilatation. Scattered stool and contrast i n the colon. IMPRESSION: Unremarkable bowel gas pattern. POS: TPC
--- NOTE | 2018-10-25 09:24 | PDOC.GSPN ---
Surgery Progress Note: Subj - Subjective Patient reports: had a bowel movement, feels better Surgery Progress Note: Obj - Vital signs Vital signs: Vital Signs - Most Recent Temp Pulse Resp BP Pulse Ox 97.3 F L 73 14 157/80 H 94 L 10/25/18 07:14 10/25/18 07:14 10/25/18 07:14 10/25/18 07:14 10/25/18 07:53 - Physical Exam General: no distress Cardiovascular: regular rate and rhythm Respiratory: clear to auscultation Abdomen: soft, appropriately tender Wound: healing well Surgery Progress Note: Results - Labs Result Diagrams: 10/25/18 04:54 10/25/18 04:54 Lab results: Laboratory Results - last 24 hr 10/25/18 10/25/18 04:54 04:54 WBC 10.7 RBC 4.36 L Hgb 12.7 L Hct 39.3 L MCV 90.1 MCH 29.0 MCHC 32.2 RDW 12.0 Plt Count 193 MPV 7.3 L Neutrophils % 55.5 Lymphocytes % 34.3 Monocytes % 6.9 Eosinophils % 2.6 Basophils % 0.7 Neutrophils # 5.9 Lymphocytes # 3.7 H Monocytes # 0.7 H Eosinophils # 0.3 Basophils # 0.1 Sodium 138 Potassium 3.3 L Chloride 102 Carbon Dioxide 28 Anion Gap 11 BUN 9 Creatinine 0.71 Estimated GFR (MDRD) Greater than 90 Glucose 106 Calcium 8.8 Total Bilirubin 0.7 AST 11 ALT 10 Alkaline Phosphatase 44 Serum Total Protein 6.0 Albumin 3.5 Globulin 2.5 Albumin/Globulin Ratio 1.4 Surgery Progress Note: A/P - Problem (1) SBO (small bowel obstruction) Current Visit: Yes Code(s): K56.609 - UNSP INTESTNL OBST, UNSP TO PARTIAL VERSUS COMPLETE OBST Status: Acute - Plan Plan: Having bowel movements but NG output high -KUB shows NG tip in duodenum -DC NG, start clears -restart home meds
[2018-10-25 11:27] VITALS: BMI 25.7
[2018-10-25] MEDS ORDERED: diphenhydrAMINE 50 MG CAP PO PRN (14:30)
[2018-10-25] MEDS ORDERED: CHLORPHENIRAMINE MALEATE 4 MG PO PRN (14:45)
[2018-10-25] MEDS ORDERED: Simvastatin 5 MG TAB PO SCH (21:00)
[2018-10-25] MEDS: Carvedilol 3.125 MG TAB PO SCH (21:01)
[2018-10-25] MEDS: Tamsulosin HCl 0.4 MG CAP PO SCH (21:02)
[2018-10-25] MEDS: Ascorbic Acid 500 mg Chewable Tablet PO SCH (21:02)
[2018-10-25] MEDS: Losartan 25 MG TAB PO SCH (21:02)
--- NOTE | 2018-10-26 06:43 | PDOC.FM ---
- Subjective Subjective: Tolerated clear liquids all day yesterday. Would like to move up to regular diet. Denies pain, nausea. Ambulating. Having bowel movements. - Objective MAR Reviewed: Yes Vital Signs & Weight: Vital Signs (12 hours) Temp Pulse Resp BP Pulse Ox 10/26/18 04:00 98.3 F 82 18 110/66 96 10/26/18 00:00 97.8 F 78 18 136/80 96 10/25/18 20:00 98.3 F 86 18 138/80 96 Weight Admit Weight 82.554 kg Weight 79.889 kg I&O: 10/24/18 10/25/18 10/26/18 06:59 06:59 06:59 Intake Total 3040 3601 740 Output Total 4500 1150 400 Balance -1460 2451 340 Result Diagrams: 10/25/18 04:54 10/25/18 04:54 Phys Exam - Physical Examination Constitutional: NAD HEENT: moist MMs Neck: supple Respiratory: no wheezing, clear to auscultation bilateral Cardiovascular: RRR, no significant murmur Gastrointestinal: soft, non-tender, positive bowel sounds Musculoskeletal: no edema Neurological: moves all 4 limbs Psychiatric: normal affect, A&O x 3 Skin: no rash Dx/Plan (1) SBO (small bowel obstruction) Code(s): K56.609 - UNSP INTESTNL OBST, UNSP TO PARTIAL VERSUS COMPLETE OBST Status: Acute (2) BPH (benign prostatic hyperplasia) Code(s): N40.0 - BENIGN PROSTATIC HYPERPLASIA WITHOUT LOWER URINRY TRACT SYMP Status: Chronic (3) Osteoarthritis Code(s): M19.90 - UNSPECIFIED OSTEOARTHRITIS, UNSPECIFIED SITE Status: Chronic (4) CAD (coronary artery disease) Code(s): I25.10 - ATHSCL HEART DISEASE OF [place] CORONARY ARTERY W/O ANG PCTRS Status: Chronic Qualifiers: Coronary Disease-Associated Artery/Lesion type: bypass graft [place] vs. transplanted heart: [place] heart Associated angina: without angina Qualified Code(s): I25.810 - Atherosclerosis of coronary artery bypass graft(s) without angina pectoris (5) GERD (gastroesophageal reflux disease) Code(s): K21.9 - GASTRO-ESOPHAGEAL REFLUX DISEASE WITHOUT ESOPHAGITIS Status: Chronic (6) Hypertension Code(s): I10 - ESSENTIAL (PRIMARY) HYPERTENSION Status: Chronic Qualifiers: Hypertension type: essential hypertension Qualified Code(s): I10 - Essential (primary) hypertension - Plan Plan: 83yo male with pmh of HTN, HLD, CAD and BPH presents with SBO SBO, POD #5 - Gen Surg consulted, Apprec recs - Ex lap with obstruction reduction on 10/21 - Regular diet - Zofran & Fentanyl prn Microscopic hematuria - F/u with PCP outpt HTN - Continue home meds HLD - Continue home meds BPH - Continue home meds CAD s/p CABG - Continue home meds Code Status: DNAR DVT ppx: SCDs PCP: AKASH Addendum - Attending - Attending Attestation Date/Time: 10/26/18 7751 I personally evaluated the patient and discussed the management with Dr. Domínguez. I agree with the History, Examination, Assessment and Plan documented above with any addition or exceptions noted below. The patient tolerated his liquid diet. Advancing and will likely discharge.
[2018-10-26] MEDS: Tamsulosin HCl 0.4 MG CAP PO SCH (07:56)
[2018-10-26] MEDS: Ascorbic Acid 500 mg Chewable Tablet PO SCH (07:57)
[2018-10-26] MEDS: Losartan 25 MG TAB PO SCH ×2 (07:57→08:07)
[2018-10-26] MEDS: Carvedilol 3.125 MG TAB PO SCH (07:58)
[2018-10-26] MEDS: Amlodipine 5 MG TAB PO SCH ×2 (07:58→08:07)
[2018-10-26] MEDS ORDERED: Multivitamin W/ Minerals 1 TAB PO SCH (09:00)
[2018-10-26] MEDS ORDERED: Calcium Carbonate + Vit D 250 MG TAB PO SCH (09:00)
[2018-10-26] MEDS ORDERED: traMADol HCl 50 MG TAB PO PRN (10:49)
[2018-10-26] MEDS ORDERED: HYDROcodone/Acetaminophen 7.5/325 mg Tablet PO PRN (10:49)
--- NOTE | 2018-10-26 10:49 | PDOC.GSPN ---
Surgery Progress Note: Subj - Subjective Patient reports: no new complaints, tolerating liquids well Surgery Progress Note: Obj - Vital signs Vital signs: Vital Signs - Most Recent Temp Pulse Resp BP Pulse Ox 97.9 F 94 16 99/64 97 10/26/18 08:00 10/26/18 08:00 10/26/18 08:00 10/26/18 08:00 10/26/18 08:00 - Physical Exam General: no distress Respiratory: clear to auscultation Abdomen: soft, appropriately tender Wound: healing well Surgery Progress Note: Results - Labs Result Diagrams: 10/25/18 04:54 10/25/18 04:54 Surgery Progress Note: A/P - Problem (1) SBO (small bowel obstruction) Current Visit: Yes Code(s): K56.609 - UNSP INTESTNL OBST, UNSP TO PARTIAL VERSUS COMPLETE OBST Status: Acute - Plan Plan: Doing well, -advance to full liquids
[2018-10-26 12:14] VITALS: BP 96/56; TEMP 97.7
--- NOTE | 2018-10-28 10:46 | DIS ---
DATE OF ADMISSION: 10/19/2018 DATE OF DISCHARGE: 10/26/2018 RESIDENT: Lissa Domínguez, PGY-1. ADMITTING ATTENDING: Gray Nugent MD. DISCHARGE ATTENDING: Lisa Keller MD. CONSULT: General Surgery. PROCEDURES: 1. Abdominal pelvis CT 10/19/2018, extensive small bowel obstruction, status post right hemicolectomy and ileocolonic anastomosis. Extensive colonic diverticulosis without acute diverticulitis. Multiple renal cysts. Multiple pedicle screws stabilizing spine. Very lax anterior and anterolateral abdominal wall. 2. Abdominal x-ray on 10/19/2018. Nasogastric tube located in stomach. 3. Op note on 10/21/2018. Exploratory laparotomy and lysis of adhesion. Area in the right upper abdomen where intestine was kinked at its obstruction point on the posterior mesh. This was taken down without injury. 4. Abdominal x-ray on 10/22/2018 at 12:08. Nasogastric tube with its tip at the gastroesophageal junction. This needs to be advanced approximately 5 more cm. 5. Abdominal x-ray on 10/22/2018 at 15:23. NG tube terminating in the mid to distal esophagus. NG tube curled up to level of GE junction. Persistent small bowel and gastric distention. 6. Abdominal x-ray on 10/22/2018 at 16:59. NG tube is coiled in the lower esophagus. There is prominent gaseous distention of the stomach. 7. Acute abdominal series on 10/25/2018. Unremarkable bowel gas pattern. PRIMARY DIAGNOSIS: Small bowel obstruction. SECONDARY DIAGNOSES: 1. Microscopic hematuria. 2. Hypertension. 3. Hyperlipidemia. 4. BPH. 5. Coronary artery disease status post CABG. DISCHARGE MEDICATIONS: 1. Amlodipine 5 mg daily. 2. Vitamin C 1000 mg b.i.d. 3. Vitamin D3 one tablet daily. 4. Coreg 3.125 mg b.i.d. 5. Chlortabs 4 mg q.i.d. 6. Colestipol 1 mg daily. 7. Colace 100 mg daily. 8. Tylenol Sinus 1-2 tabs q.4 hours p.r.n. 9. Losartan 25 mg b.i.d. 10. Multivitamin daily. 11. Chloraseptic spray p.r.n. 12. Pravastatin 20 mg at bedtime. 13. Metamucil one tab daily p.r.n. 14. Simethicone 125 mg q.i.d. 15. Tamsulosin 0.4 mg b.i.d. HISTORY OF PRESENT ILLNESS/HOSPITAL COURSE: Mr. Parikh is a pleasant 83-year-old male with past medical history of CAD status post CABG, hypertension, hyperlipidemia, BPH, and several abdominal surgeries, presenting with acute onset of abdominal pain with nausea and distention. He has not had bowel movement for several days. CT showed small bowel obstruction. Surgery was consulted and the patient was given morphine for pain control. NG tube was placed and the patient was made n.p.o. His abdominal surgery history remarkable for laparoscopic lysis of peritoneal adhesions 11/2017, double hernia 11/2017, and cholecystectomy 2002, right colectomy with reanastomosis secondary to possible diverticular bleed 11/2016, prostatectomy 2003. Vital signs at admission; blood pressure 168/91, pulse 93. He is saturating 97% on room air. The patient appeared to be very distended with moderately tender to palpation mostly over the left lower quadrant and tympanic to percussion with active bowel sounds. The patient was given Zofran, morphine p.r.n. The patient did not show improvement despite conservative measures. The patient was taken back to the OR for exploratory laparotomy where he underwent lysis of adhesions on 10/21/2018 and afterwards showed improvement and was having bowel movement; however, he became very nauseous and x-ray was taken showing that the NG tube had come up into the distal portion of the esophagus causing his symptoms. This was inserted further down and nausea improved. The patient was having bowel movement, ambulating, and denied pain or nausea. However, his NG tube was having a large amount of output. Acute abdominal series was normal and NG tube found to be in the proximal duodenum. NG tube was removed. The patient was tolerating regular diet prior to discharge and denied any pain. Labs were remarkable for leukocytosis 15.3, anemia 13.7, leukocytosis resolved 10.7 at discharge. DISPOSITION: Stable. DISCHARGE INSTRUCTIONS: 1. Location: Home. 2. Diet: Regular. 3. Activity: No restrictions. 4. Follow up with PCP, [place] [facility] within seven days and Dr. Garcia within 2 weeks. Job ID: [id number]
== END 2018-10-26 16:21 | disposition home or self-care (01) | DRG 337 ==
LOC: ERS 00:22 → SJJU 07:03
PROVIDERS: ADMIT Family Medicine; ATTEND Family Medicine
PROC: 0DN80ZZ Release Small Intestine, Open Approach (ICD-10-PCS; principal; 2018-10-21)
PROC: 0D9680Z Drainage of Stomach with Drainage Device, Via Natural or Artificial Opening Endoscopic (ICD-10-PCS; 2018-10-23)
DX: K56.51 Intestinal adhesions [bands], with partial obstruction (principal); Z66 Do not resuscitate; I25.10 Atherosclerotic heart disease of native coronary artery without angina pectoris; K21.9 Gastro-esophageal reflux disease without esophagitis; Z95.1 Presence of aortocoronary bypass graft; I10 Essential (primary) hypertension; E78.5 Hyperlipidemia, unspecified; M19.90 Unspecified osteoarthritis, unspecified site; N40.0 Benign prostatic hyperplasia without lower urinary tract symptoms; Z96.651 Presence of right artificial knee joint; K56.7 Ileus, unspecified; R31.29 Other microscopic hematuria; Z95.5 Presence of coronary angioplasty implant and graft; Z90.49 Acquired absence of other specified parts of digestive tract; Z87.891 Personal history of nicotine dependence; Z79.899 Other long term (current) drug therapy
CPT/HCPCS: 36415; 44500; 74018; 74022; 74177; 74250; 74340; 80048; 80053; 81003; 81015; 82150; 83690; 84484; 85025; 93005; 96361; 96374; 96375; J0131; J0360; J0690; J1200; J1885; J2001; J2270; J2405; J2550; J2704; J3010; Q0153; Q9963; Q9966

== ENCOUNTER 2018-10-30 14:29 | Inpatient (IN) | payer MEDICARE, BC ==
[2018-10-30] MEDS ORDERED: Piperacillin/Tazobactam 4.5 GM VIAL ONE (14:48)
[2018-10-30 14:54] LABS: #Basophils 0.1 thou/uL (0.0-0.2); #Lymphocytes 2.8 thou/uL (1.20-3.40); #Monocytes 0.5 thou/uL (0.11-0.59); #Neutrophils 11.1 thou/uL (1.40-6.50); %Basophils 0.8 % (0.0-1.0); %Eosinophils 0.1 % (0.0-10.0); %Lymphocytes 19.3 % (21.0-51.0); %Monocytes 3.6 % (0.0-10.0); %Neutrophils 76.2 % (42.0-75.0); Hemoglobin 11.7 g/dL (14.0-18.0); Mean Corpuscular HGB CONC 32.9 g/dL (32.0-36.0); Mean Corpuscular Hemoglobin 29.2 pg (27.0-31.0); Mean Corpuscular Volume 88.8 fL (78.0-98.0); Mean Platelet Volume 6.8 fL (7.4-10.4); Platelet Count 221 thou/uL (130-400); RBC Distribution Width 12.1 % (11.5-14.5); Red Blood Cell (RBC) Count 3.99 mill/uL (4.70-6.10); White Blood Cell (WBC) Count 14.5 thou/uL (4.8-10.8)
[2018-10-30] MEDS ORDERED: Vancomycin HCl 1.75 GM in Sodium Chloride 0.9% 500 ML IVPB SCH (15:00)
[2018-10-30 15:14] LABS: ALT (SGPT) 10 U/L (8-55); AST (SGOT) 16 U/L (5-34); Albumin 3.5 g/dL (3.4-4.8); Alkaline Phosphatase 54 U/L (40-150); Anion Gap 13 mmol/L (10-20); BUN (Urea Nitrogen) 14 mg/dL (8.4-25.7); Bilirubin, Total 0.5 mg/dL (0.2-1.2); Calc. Creatinine Clearance 0 mL/min (70-130); Carbon Dioxide 26 mmol/L (23-31); Chloride 99 mmol/L (98-107); Estimated GFR-MDRD Greater than 90; Globulin 2.9 g/dL (2.4-3.5); Glucose 117 mg/dL (83-110); Potassium 4.1 mmol/L (3.5-5.1); Protein, Total 6.4 g/dL (5.8-8.1); Sodium 134 mmol/L (136-145)
[2018-10-30 15:39] LABS: Bilirubin Negative (Negative); Blood, Urine Negative (Negative); Clarity CLEAR (Clear); Glucose, Urine (Dipstick) Negative (Negative); Leukocyte Negative (Negative); Nitrite Negative (Negative); Protein, Urine (Dipstick) 30 mg/dL (Neg-Trace); Specific Gravity, Urine 1.028 (1.002-1.036); pH, Urine 5.5 (5.0-9.0)
[2018-10-30 15:41] LABS: Bacteria/HPF None Seen HPF (None Seen); Pathc Cast-AUWi Flag 1.08 (0-2.49); Squamous Epithelial 0-3 HPF (0-3); WBC/HPF 0-3 HPF (0-3)
[2018-10-30 15:50] LABS: Hyaline Casts/LPF 0-3 HYALINE CAST LPF (0-3 Hyaline); RBC/HPF 0-3 HPF (0-3)
--- NOTE | 2018-10-30 15:57 | CT ---
CONTRAST ENHANCED IMAGES ABDOMEN AND PELVIS: HISTORY: Abdominal pain and fever. IV contrast was given. Oral contrast was not administered. COMPARISON: Comparison made to a previous exam from 10/19/2018. FINDINGS: The lung bases are unremarkable. The patient's has had an interval abdominal surgery with releasing of abdominal wall adhesions. The liver and spleen are unremarkable. Sliding-type hiatal hernia present. There is an approximately 3.4 cm extra luminal intra-abdominal fluid collection seen on axial image # 50 concerning for a possible abscess in the right anterior abdominal cavity in between the right anterior abdominal wall bowel loops. No dilated loops of small bowel seen. Some of the adjacent loops of bowel adjacent to this fluid collection also demonstrate wall thickening concerning for inflammatory process. Extensive descending and sigmoid colonic diverticuli are present. The patient's had previous left hip arthroplasty. IMPRESSION: Right intra-abdominal ill-defined collection of fluid with some enhancement possibly representing a d eveloping abscess. Transcribed Date/Time: 10/30/2018 4:04 PM
--- NOTE | 2018-10-30 16:15 | PDOC.FPRHP ---
- History of Present Illness Chief Complaint: abd pain, fever History of Present Illness: 83 yo M recently discharged on 10/26, POD #14 for colectomy for a high grade SBO presents to ER for abd pain, fevers, and chills starting this morning around 8 am. Pain is at incisional site where erythema started developing. No nausea, vomiting. Endorses passing flatus, no BM, hasn't eaten today yet. In the ED he was febrile, tachycardic, with a white count. CT abdomen showed 3.4 cm extra luminal intra abdominal fluid collection concerning for abscess. - Allergies/Adverse Reactions Allergies Allergy/AdvReac Type Severity Reaction Status Date / Time No Known Drug Allergies Allergy Verified 10/19/18 07:49 - Home Medications Medication Instructions Recorded Confirmed Type Calcium Carbonate/Vitamin D3 1 tablet PO DAILY 12/08/16 10/19/18 History [Calcium 250 + Vitamin D] Multivitamin/Iron/Folic Acid 1 tablet PO DAILY 12/08/16 10/19/18 History [Centrum Complete Multivitamin] Amlodipine [Norvasc] 5 mg PO DAILY 10/19/18 10/19/18 History Ascorbic Acid [Vitamin C] 1,000 mg PO BID 10/19/18 10/19/18 History Carvedilol 3.125 mg PO BID 10/19/18 10/19/18 History Chlorpheniramine Maleate 4 mg PO QID PRN 10/19/18 10/19/18 History [Chlortabs] Colestipol HCl 1 mg PO DAILY 10/19/18 10/19/18 History Docusate Sodium 100 mg PO DAILY 10/19/18 10/19/18 History Losartan [Cozaar] 25 mg PO BID 10/19/18 10/19/18 History Pravastatin Sodium 20 mg PO HS 10/19/18 10/19/18 History Psyllium Husk [Metamucil] 1 tab PO DAILY 10/19/18 10/19/18 History Simethicone [Gas-X Extra Strength] 125 mg PO QID 10/19/18 10/19/18 History Tamsulosin HCl 0.4 mg PO BID 10/19/18 10/19/18 History guaiFEN/Phenyleph/Acetaminophn 1 - 2 tab PO Q4H PRN 10/19/18 10/19/18 History [Tylenol Sinus Severe [place]] Phenol [Chloraseptic [place]] 0 ml PO Q2H PRN bot 10/26/18 Rx - History PMHx:SBO,CAD, HLD, OA, GERD, chronic back pain, HTN PSHx: bowel resection for high grade SBO (10/21/18), laparoscopic lysis of peritoneal adhesions (11/2017),double hernia (10/2017), hip replacement (05/2010) , cholecystectomy (2002), bilateral cataracts, CAD s/p stents and CABG 4(V)(2006 ), Right colectomy with reanastomosis 2/2 diverticular bleed? (11/2016), prostatectomy(2003), back surgery (), right knee replacement ) FHx: colon cancer, mother: DM Social:4 oz wine every night, quit smoking 35 years ago, Denies drugs - Review of Systems General: reports: fever/chills, weight/appetite/sleep changes Eyes: denies: eye pain, vision changes ENT: denies: nasal congestion, rhinorrhea Respiratory: denies: cough, congestion, shortness of breath Cardiovascular: reports: edema. denies: chest pain, palpitation, orthopnea Gastrointestinal: reports: abdominal pain. denies: nausea, vomiting, diarrhea, GI bleeding Genitourinary: denies: incontinence, dysuria Skin: reports: rashes, lesions. denies: jaundice Musculoskeletal: reports: pain, tenderness. denies: stiffness, swelling Neurological: denies: numbness, syncope, seizure - Vital signs BP: 146/100 HR: 94 RR: 14 Tmax:100.7 Pox: 94% on RA Wt: 86kg - Physical Exam Constitutional: awake, alert and oriented, well developed -Constitutional: acute distress from pain HEENT: normocephalic and atraumatic, PERRLA, no scleral icterus, grossly normal vision Neck: supple, FROM, trachea midline Chest: no-tender to palpation Heart: RRR, normal S1/S2 Lungs: CTAB, no respiratory distress, good air movement Abdomen: soft, bowel sounds present -Abdomen: no guarding or rebound tenderness to palpation in lower quadrants Musculoskeletal: normal structure, normal tone Neurological: no focal deficit, CN II-XII intact -Skin: midline vertical lower abdominal incision with erythema, no purulence tender to palpation no fluctuance, no wound dehiscence Psychiatric: normal mood and affect, good judgment and insight FMR H&P: Results - Labs Result Diagrams: 10/30/18 14:42 10/30/18 14:42 Lab results: WBC 14.5 thou/uL (4.8-10.8) H 10/30/18 14:42 Hgb 11.7 g/dL (14.0-18.0) L 10/30/18 14:42 Hct 35.4 % (42.0-52.0) L 10/30/18 14:42 MCV 88.8 fL (78.0-98.0) 10/30/18 14:42 Plt Count 221 thou/uL (130-400) 10/30/18 14:42 Neutrophils % 76.2 % (42.0-75.0) H 10/30/18 14:42 Sodium 134 mmol/L (136-145) L 10/30/18 14:42 Potassium 4.1 mmol/L (3.5-5.1) 10/30/18 14:42 Chloride 99 mmol/L (98-107) 10/30/18 14:42 Carbon Dioxide 26 mmol/L (23-31) 10/30/18 14:42 BUN 14 mg/dL (8.4-25.7) 10/30/18 14:42 Creatinine 0.73 mg/dL (0.7-1.3) 10/30/18 14:42 Glucose 117 mg/dL (83-110) H 10/30/18 14:42 Lactic Acid 1.0 mmol/L (0.5-2.2) 10/30/18 14:42 Calcium 9.0 mg/dL (7.8-10.44) 10/30/18 14:42 Total Bilirubin 0.5 mg/dL (0.2-1.2) 10/30/18 14:42 AST 16 U/L (5-34) 10/30/18 14:42 ALT 10 U/L (8-55) 10/30/18 14:42 Alkaline Phosphatase 54 U/L (40-150) 10/30/18 14:42 Serum Total Protein 6.4 g/dL (5.8-8.1) 10/30/18 14:42 Albumin 3.5 g/dL (3.4-4.8) 10/30/18 14:42 Urine Ketones Trace mg/dL (Negative) H 10/30/18 15:30 Urine Blood Negative (Negative) 10/30/18 15:30 Urine Nitrite Negative (Negative) 10/30/18 15:30 Ur Leukocyte Esterase Negative (Negative) 10/30/18 15:30 Urine RBC 0-3 HPF (0-3) 10/30/18 15:30 Urine WBC 0-3 HPF (0-3) 10/30/18 15:30 Ur Squamous Epith Cells 0-3 HPF (0-3) 10/30/18 15:30 Urine Bacteria None Seen HPF (None Seen) 10/30/18 15:30 - EKG Interpretation EKG: NSR - Radiology Interpretation CT scan - abdomen Status: report reviewed by me Additional comment: 3.4 cm extraluminal intraabdominal fluid collection, concern for abscess no dilated loops of bowel wall thickening of bowel FMR H&P: A/P - Problem List (1) Intra-abdominal abscess post-procedure Current Visit: Yes Status: Acute Code(s): T81.49XA - INFECTION FOLLOWING A PROCEDURE, OTHER SURGICAL SITE, INIT (2) CAD (coronary artery disease) Current Visit: No Status: Chronic Code(s): I25.10 - ATHSCL HEART DISEASE OF [place] CORONARY ARTERY W/O ANG PCTRS Qualifiers: Coronary Disease-Associated Artery/Lesion type: bypass graft [place] vs. transplanted heart: [place] heart Associated angina: without angina Qualified Code(s): I25.810 - Atherosclerosis of coronary artery bypass graft(s) without angina pectoris (3) GERD (gastroesophageal reflux disease) Current Visit: No Status: Chronic Code(s): K21.9 - GASTRO-ESOPHAGEAL REFLUX DISEASE WITHOUT ESOPHAGITIS (4) Hypertension Current Visit: No Status: Chronic Code(s): I10 - ESSENTIAL (PRIMARY) HYPERTENSION Qualifiers: Hypertension type: essential hypertension Qualified Code(s): I10 - Essential (primary) hypertension (5) Osteoarthritis Current Visit: No Status: Chronic Code(s): M19.90 - UNSPECIFIED OSTEOARTHRITIS, UNSPECIFIED SITE - Plan 83 yo M POD #14 for colectomy for high grade SBO admitted for sepsis 2/2 to intraabdominal abscess Sepsis 2/2 intraabdominal abscess -Febrile, tachycardic, WBC 14.5 -CT showing extraluminal intraabdominal abscess -s/p Vanc and zosyn in ED,continue pending blood cx -Dr. Lui consulted, will review CT imaging -s/p 1L in ED, tachycardia has since resolved, lactic acid <1. No further bolusing with history of CAD s/p CABG. Will start on mIVF, strict NPO pending anticipated abdominal surgery SBO s/p colectomy POD #14 -ex lap with obstruction reduction on 10/21 HTN -IV antihypertensives while NPO HLD -hold while NPO BPH -hole while NPO CAD s/p CABG -hole while NPO code status: DNAR dvt ppx: lovenox PCP: [facility] FMR H&P: Upper Level - Pertinent history 83 y/o M w/ PMHx of high grade SBO s/p bowel resection w/ recent d/c from hospital on 10/26 presents to the ER for evaluation of abdominal pain, fever, chills that started this AM. Reports that he has been passing flatus. Contacted Dr. Garcia template reproduction technician service and advised to come in for eval. - Pertinent findings Vitals Per Geographic Information Systems Analyst note CT-AP - Right intra-abdominal ill-defined collection of fluid with some enhancement possibly representing a d eveloping abscess. WBC - 14.5 Hgb - 11.7 GEN: NAD, laying in bed CARD: Tachycardic, no murmur noted PULM: CTA-b/l GI: vertical ifra-umbilical Incision w/ surroudning erythema, diffusely TTP. No active drainage noted - Plan Date/Time: 10/30/18 6429 IRikki. Manoj Perez MD, have evaluated this patient and agree with findings/plan as outlined by accounting intern resident. Pertinent changes/additions are listed here. 83 y/o M w/: 1) Sepsis 2/2 intrabdominal abscess/cellulitus s/p bowel resection - Pt w/ hx of CAD s/p CABG, last echo from 2016 showing EF 60-65% w/ suspected diastolic dysfunction - Received 1L of NS in the ER w/ resolution of his tachycardia - Will check a lactate - BCx and UCx pending obtained in the ER - Will continue w/ Broad spectrum coverage w/ Vanc + Zosyn in setting of intrabdominal infection w/ cellulitus surroudning incision - Gen Surg consulted for likely operative intervention. Pending reccomendations - Pt hemodynamicall stable, will [facility] w/ [facility] and check lactate to help guide further fluid recucitation - Strict I/O's to monitor UOP 2) Other chronic medical problems per accounting intern note Addendum - Attending - Attending Attestation Date/Time: 10/30/18 8130 I personally evaluated the patient and discussed the management with Dr. Parikh. I agree with the History, Examination, Assessment and Plan documented above with any addition or exceptions noted below. The patient presented to the er with worsening abdominal pain, shaking chills and fever of 102. CT shows an intra-abdominal abscess. Surgery has been consulted. Will continue antibiotics. Trend WBC. further recs per surgery.
[2018-10-30] MEDS ORDERED: ISOVUE-370 76%-LOCM 1 ML ONE (16:53)
[2018-10-30 18:11] LABS: Lactic Acid 0.6 mmol/L (0.5-2.2)
[2018-10-30] MEDS ORDERED: Lactated Ringer's 1,000 ML IV SCH (19:49)
[2018-10-30] MEDS ORDERED: Acetaminophen 325 MG TAB PO PRN (19:49)
[2018-10-30] MEDS ORDERED: Morphine 4 MG/ML VIAL SLOW IVP PRN (19:51)
[2018-10-30] MEDS ORDERED: Ondansetron ODT 4 MG TAB PO PRN (20:00)
[2018-10-30] MEDS ORDERED: Acetaminophen 1,000 MG in Premix Bag 1 BAG IVPB PRN (20:00)
[2018-10-30] MEDS: Lactated Ringer's 1,000 ML IV SCH (21:15)
--- NOTE | 2018-10-30 22:23 | CON ---
DATE OF CONSULTATION: REASON FOR CONSULT: Abdominal pain. HISTORY: Mr. Parikh is an 83-year-old man, who underwent a laparotomy and lysis of adhesions by Dr. Garcia 10 days ago. He did have a couple of enterotomies, which were immediately identified and repaired. There was no gross spillage and he recovered uneventfully postoperatively. He was discharged home 3 days ago, but returned because he started having rigors this morning. He says that he has had little abdominal pain, but it has not been bad and he noticed a little bit of redness along his incision a couple of days ago as well. He was running low-grade fevers at home and having shaking chills, so he came in for further evaluation and was found to have evidence of a fluid collection underlying his incision concerning for developing abscess. PAST MEDICAL HISTORY: Hypertension, benign prostatic hypertrophy, heart disease, hypercholesterolemia, and arthritis. PAST SURGICAL HISTORY: Cholecystectomy, prostate surgery, quadruple bypass and stenting, back surgery, left hip replacement, bilateral cataracts, colectomy, laparoscopic incisional hernia repair, laparoscopic lysis of adhesions, knee replacement in late July, and laparotomy and lysis of adhesions recently. OUTPATIENT MEDICATIONS: Include: 1. Losartan 20 mg p.o. b.i.d. 2. Pravastatin 20 mg p.o. q.h.s. 3. Carvedilol 3.125 mg p.o. b.i.d. 4. Amlodipine 5 mg p.o. daily. 5. Colestipol 1 mg p.o. daily. 6. Tamsulosin b.i.d. 7. Gas-X four times a day. 8. He also takes Metamucil stool softener and Tylenol on a p.r.n. basis. 9. Vitamins and calcium. ALLERGIES: NO KNOWN DRUG ALLERGIES. REVIEW OF SYSTEMS: Ten system review of systems is negative except per HPI. PHYSICAL EXAMINATION: GENERAL: Reveals a healthy elderly man, in no acute distress, who appears his stated age. He is not flushed or toxic. He is not diaphoretic or pale. He is not jaundiced or icteric. VITAL SIGNS: Low-grade fever of 100.7, heart rate 94, blood pressure 146/100, respiratory rate 14, 94% saturated on room air. HEENT: Unremarkable. NECK: Supple without lymphadenopathy or thyroid nodules. HEART: Regular in its rate and rhythm. He does have a soft systolic murmur, which is heard best at the base and does not appear to radiate. LUNGS: Clear to auscultation bilaterally. ABDOMEN: Soft and nondistended. He is tender to palpation centrally and he has some erythema along his midline incision, but no expressible drainage. Bowel sounds are present. EXTREMITIES: Warm and well perfused. He has mild ankle edema. NEUROLOGIC: No focal deficits. PSYCHIATRIC: Alert, oriented, and appropriate. LABORATORY DATA: White count is elevated at 14.5 with a left shift, hematocrit is 35. Electrolytes and LFTs are unremarkable. CT images were reviewed and I agree with the written report. He has a fluid collection intra-abdominally abutting the anterior abdominal wall, which is about 3-1/2 cm in diameter. There is a little soft tissue stranding at the site of his incision, but no visible fluid collection at that location. ASSESSMENT AND PLAN: Intra-abdominal abscess, status post lysis of adhesions. I have recommended percutaneous drainage or at least aspiration to guide antibiotic therapy. He has some erythema of his incision and may be developing a wound infection as well, although there is no drainable fluid collection on CT and no expressible drainage on exam. If he develops worsening fluctuance or erythema, the incision will be opened and packed. He has received Zosyn and vancomycin in the emergency room and is going to be continued on these as an inpatient. The diagnosis and plan of care were discussed with the patient and his family, and they are in agreement with the plan. He has no evidence of persistent or recurrent bowel obstruction at this time. Job ID: [id number]
[2018-10-30] MEDS: Piperacillin/Tazobactam 4.5 GM in Sodium Chloride 0.9% 100 ML IVPB SCH (22:42)
[2018-10-30 23:13] VITALS: BMI 26.4
[2018-10-31] MEDS: Piperacillin/Tazobactam 4.5 GM in Sodium Chloride 0.9% 100 ML IVPB SCH ×4 (04:32→20:43)
[2018-10-31] MEDS: Vancomycin HCl 1.5 GM in Sodium Chloride 0.9% 250 ML 300 ML IVPB SCH ×2 (04:33→16:29)
[2018-10-31] MEDS: Lactated Ringer's 1,000 ML IV SCH ×4 (04:33→20:56)
[2018-10-31 06:19] LABS: #Basophils 0.1 thou/uL (0.0-0.2); #Lymphocytes 2.1 thou/uL (1.20-3.40); #Monocytes 0.5 thou/uL (0.11-0.59); #Neutrophils 7.8 thou/uL (1.40-6.50); %Basophils 0.9 % (0.0-1.0); %Eosinophils 0.2 % (0.0-10.0); %Lymphocytes 19.8 % (21.0-51.0); %Monocytes 4.3 % (0.0-10.0); %Neutrophils 74.8 % (42.0-75.0); Hemoglobin 10.2 g/dL (14.0-18.0); Mean Corpuscular HGB CONC 33.2 g/dL (32.0-36.0); Mean Corpuscular Hemoglobin 29.5 pg (27.0-31.0); Mean Corpuscular Volume 88.7 fL (78.0-98.0); Mean Platelet Volume 6.9 fL (7.4-10.4); Platelet Count 211 thou/uL (130-400); RBC Distribution Width 12.1 % (11.5-14.5); Red Blood Cell (RBC) Count 3.46 mill/uL (4.70-6.10); White Blood Cell (WBC) Count 10.4 thou/uL (4.8-10.8)
--- NOTE | 2018-10-31 06:23 | PDOC.FM ---
- Subjective Subjective: NAEO. Denies fevers, chills. Mild abd pain. - Objective MAR Reviewed: Yes Vital Signs & Weight: Vital Signs (12 hours) Temp Pulse Resp BP Pulse Ox 10/31/18 03:45 99.5 F 89 18 149/67 H 94 L 10/30/18 23:38 98.9 F 82 20 136/65 97 10/30/18 20:00 98.8 F 75 20 142/63 H 98 Weight Weight 81.284 kg Result Diagrams: 10/31/18 05:42 10/31/18 05:43 Phys Exam - Physical Examination Constitutional: NAD HEENT: PERRLA, moist MMs Neck: no nodes, full ROM Respiratory: no wheezing, clear to auscultation bilateral Cardiovascular: RRR, no significant murmur Gastrointestinal: soft TTP at incisional site Neurological: non-focal, moves all 4 limbs Psychiatric: normal affect, A&O x 3 Deviation from normal: erythema at incisional site, mild fluctuance, purulent drainage from wound Dx/Plan (1) Intra-abdominal abscess post-procedure Code(s): T81.49XA - INFECTION FOLLOWING A PROCEDURE, OTHER SURGICAL SITE, INIT Status: Acute (2) CAD (coronary artery disease) Code(s): I25.10 - ATHSCL HEART DISEASE OF [place] CORONARY ARTERY W/O ANG PCTRS Status: Chronic Qualifiers: Coronary Disease-Associated Artery/Lesion type: bypass graft [place] vs. transplanted heart: [place] heart Associated angina: without angina Qualified Code(s): I25.810 - Atherosclerosis of coronary artery bypass graft(s) without angina pectoris (3) GERD (gastroesophageal reflux disease) Code(s): K21.9 - GASTRO-ESOPHAGEAL REFLUX DISEASE WITHOUT ESOPHAGITIS Status: Chronic (4) Hypertension Code(s): I10 - ESSENTIAL (PRIMARY) HYPERTENSION Status: Chronic Qualifiers: Hypertension type: essential hypertension Qualified Code(s): I10 - Essential (primary) hypertension (5) Osteoarthritis Code(s): M19.90 - UNSPECIFIED OSTEOARTHRITIS, UNSPECIFIED SITE Status: Chronic - Plan Plan: 83 yo M POD #14 for colectomy for high grade SBO admitted for sepsis 2/2 to intraabdominal abscess Sepsis 2/2 intraabdominal abscess -Febrile, tachycardic, WBC 14.5 in ED -CT showing 3.4 cm extraluminal intraabdominal abscess -Dr. Lui consulted, recommended percutaneous drain/aspiration of abscess. No further intervention regarding wound incision site erythema, but if fluctuance starts developing, may need to reopen and pack. -Continue broad spectrum vanc & zosyn, pending blood & intraabdominal fluid cultures -Sent for GS/fluid culture of wound fluid -Gen surg consulted, recs apprecaited -Plan for IR drainage today Hypokalemia -3.3 -will replace SBO s/p lysis of adhesions -ex lap with obstruction reduction on 10/21 HTN -IV antihypertensives while NPO HLD -hold while NPO BPH -hole while NPO CAD s/p CABG -hole while NPO code status: DNAR (need to reclarify resuscitation status) dvt ppx: lovenox PCP: AKASH Addendum - Attending - Attending Attestation Date/Time: 10/31/18 2018 I personally evaluated the patient and discussed the management with Dr. Ignacio. I agree with the History, Examination, Assessment and Plan documented above with any addition or exceptions noted below. Pt has erythema surrounding previous incision with bloody purulent drainage. He is scheduled for CT guided drainage of intra-abdominal abscess. Continue antibiotics. F/u with surgery recs.
[2018-10-31 06:35] LABS: Anion Gap 9 mmol/L (10-20); BUN (Urea Nitrogen) 8 mg/dL (8.4-25.7); Calc. Creatinine Clearance 101 mL/min (70-130); Calcium 7.9 mg/dL (7.8-10.44); Carbon Dioxide 26 mmol/L (23-31); Chloride 101 mmol/L (98-107); Estimated GFR-MDRD Greater than 90; Glucose 105 mg/dL (83-110); Potassium 3.3 mmol/L (3.5-5.1); Sodium 133 mmol/L (136-145)
[2018-10-31] MEDS ORDERED: Potassium Chloride 40 MEQ in Premix Bag 1 BAG IVPB SCH (09:00)
[2018-10-31] MEDS: Enoxaparin Sodium 40 MG/0.4 ML SYRINGE SC SCH (09:36)
[2018-10-31] MEDS: Potassium Chloride 20 MEQ in Premix Bag 1 BAG IVPB SCH ×2 (09:36→12:19)
[2018-10-31 10:01] LABS: INR-International Normal Ratio 1.3; Prothrombin Time 15.9 SEC (12.0-14.7)
[2018-10-31 10:02] LABS: PTT 36.7 SEC (22.9-36.1)
[2018-10-31] MEDS ORDERED: Midazolam HCl 2 mg/2 ml Vial ONE (10:18)
[2018-10-31] MEDS ORDERED: Fentanyl 100 MCG/2 ML VIAL ONE (10:18)
[2018-10-31] MEDS ORDERED: Sodium Bicarbonate 2.5 MEQ/5 ML VIAL ONE (10:19)
--- NOTE | 2018-10-31 11:42 | CT ---
CT GUIDED RIGHT INTRAPERITONEAL ABSCESS DRAINAGE: HISTORY: Patient with small intraperitoneal fluid collection seen on CT from previous day. FINDINGS: Informed consent was obtained from the patient. The intraperitoneal collection was localized using CT guidance. The overlying skin was prepped and draped in the usual sterile manner. A 5 Turkmen Yueh needle was used to gain access into the peritoneal cavity. An 0.035 wire was introduced. This was fol lowed by an 8 Turkmen dilator. A 6 Turkmen pigtail catheter was then placed over the wire into the collection. [place]-colored serous fluid was aspirated. Specimen sent to pathology. Pathology is pending . IMPRESSION: Successful CT-guided right intraperitoneal fluid collection drainage. Transcribed Date/Time: 10/31/2018 11:44 AM
--- NOTE | 2018-10-31 11:57 | CT ---
LIMITED CT ABDOMEN AND PELVIS: HISTORY: Patient had recently placed intraperitoneal drainage catheter. The patient had a large amount of diar den while on the CT scan. While being cleaned on the CT scan there was some possible backing out of the drainage catheter. I have instructed them to rescan the patient to determine position of the c atheter. FINDINGS AND IMPRESSION: Limited CT abdomen pelvis performed. The drainage catheter is in its expected location and has not been pulled out. Transcribed Date/Time: 10/31/2018 12:01 PM
[2018-10-31 13:43] LABS: BF Color Red; Body Fluid Source Abscess Fluid; Clarity Cloudy/Turbid (Clear); Tube # EDTA
--- NOTE | 2018-10-31 15:28 | PDOC.GSPN ---
Surgery Progress Note: Subj - Subjective Narrative: Patient is feeling much better today. His abdominal pain is improved. He underwent percutaneous drainage of the intra-abdominal fluid collection this morning. He did start having some drainage from his midline incision earlier today as well. No fevers or nausea. Erythema has not extended beyond the marked borders but he does have some cloudy serous sanguinous fluid from just above the umbilicus. There is also cloudy serosanguineous fluid in the percutaneous drain bag. The abdominal incision was prepped with ChloraPrep and the skin suture, the drainage site cut some cloudy serosanguineous fluid was expressed and sent for Gram stain and culture. The wound was then packed with iodoform gauze and dressed with 4 x 4's and tape. We will do daily dressing changes to this area and continue antibiotics. Await cultures Surgery Progress Note: Obj - Vital signs Vital signs: Vital Signs - Most Recent Temp Pulse Resp BP Pulse Ox 98.3 F 71 20 134/63 96 10/31/18 12:08 10/31/18 12:08 10/31/18 12:08 10/31/18 12:08 10/31/18 12:08 Surgery Progress Note: Results - Labs Result Diagrams: 10/31/18 05:42 10/31/18 05:43 Lab results: Laboratory Results - last 24 hr 10/31/18 10/31/18 10/31/18 05:42 05:43 09:44 WBC 10.4 RBC 3.46 L Hgb 10.2 L Hct 30.7 L MCV 88.7 MCH 29.5 MCHC 33.2 RDW 12.1 Plt Count 211 MPV 6.9 L Neutrophils % 74.8 Lymphocytes % 19.8 L Monocytes % 4.3 Eosinophils % 0.2 Basophils % 0.9 Neutrophils # 7.8 H Lymphocytes # 2.1 Monocytes # 0.5 Eosinophils # 0.0 Basophils # 0.1 PT 15.9 H INR 1.3 APTT 36.7 H Sodium 133 L Potassium 3.3 L Chloride 101 Carbon Dioxide 26 Anion Gap 9 L BUN 8 L Creatinine 0.64 L Estimated GFR (MDRD) Greater than 90 Glucose 105 Calcium 7.9 Fluid Source Fluid Tube Number Fluid Color Fluid Clarity Fluid WBC (Manual) Fluid Comment 10/31/18 11:10 WBC RBC Hgb Hct MCV MCH MCHC RDW Plt Count MPV Neutrophils % Lymphocytes % Monocytes % Eosinophils % Basophils % Neutrophils # Lymphocytes # Monocytes # Eosinophils # Basophils # PT INR APTT Sodium Potassium Chloride Carbon Dioxide Anion Gap BUN Creatinine Estimated GFR (MDRD) Glucose Calcium Fluid Source Abscess Fluid Fluid Tube Number EDTA Fluid Color Red Fluid Clarity Cloudy/Turbid H Fluid WBC (Manual) Fluid Comment Note: - Radiology Interpretation CT scan - abdomen Status: report reviewed by me
[2018-10-31] MEDS ORDERED: Iopamidol 370 76% 50 ML VIAL FS ONE (16:57)
[2018-11-01] MEDS: Piperacillin/Tazobactam 4.5 GM in Sodium Chloride 0.9% 100 ML IVPB SCH ×4 (02:57→21:38)
[2018-11-01] MEDS: Lactated Ringer's 1,000 ML IV SCH ×2 (05:22→21:20)
[2018-11-01] MEDS: Vancomycin HCl 1.5 GM in Sodium Chloride 0.9% 250 ML 300 ML IVPB SCH ×2 (05:22→17:59)
[2018-11-01 06:19] LABS: #Basophils 0.1 thou/uL (0.0-0.2); #Eosinphils 0.1 thou/uL (0.0-0.7); #Lymphocytes 2.9 thou/uL (1.20-3.40); #Monocytes 0.6 thou/uL (0.11-0.59); #Neutrophils 6.3 thou/uL (1.40-6.50); %Basophils 1.2 % (0.0-1.0); %Eosinophils 0.9 % (0.0-10.0); %Lymphocytes 28.8 % (21.0-51.0); %Monocytes 5.7 % (0.0-10.0); %Neutrophils 63.4 % (42.0-75.0); Hemoglobin 11.3 g/dL (14.0-18.0); Mean Corpuscular HGB CONC 32.7 g/dL (32.0-36.0); Mean Corpuscular Hemoglobin 29.3 pg (27.0-31.0); Mean Corpuscular Volume 89.5 fL (78.0-98.0); Mean Platelet Volume 7.2 fL (7.4-10.4); Platelet Count 232 thou/uL (130-400); RBC Distribution Width 12.3 % (11.5-14.5); Red Blood Cell (RBC) Count 3.87 mill/uL (4.70-6.10)
[2018-11-01 06:42] LABS: Anion Gap 12 mmol/L (10-20); BUN (Urea Nitrogen) 6 mg/dL (8.4-25.7); Calc. Creatinine Clearance 104 mL/min (70-130); Calcium 8.6 mg/dL (7.8-10.44); Carbon Dioxide 26 mmol/L (23-31); Chloride 101 mmol/L (98-107); Estimated GFR-MDRD Greater than 90; Glucose 95 mg/dL (83-110); Potassium 3.5 mmol/L (3.5-5.1); Sodium 135 mmol/L (136-145)
--- NOTE | 2018-11-01 07:52 | PDOC.FM ---
- Subjective Subjective: Pt state he did well over night. He denies CP, SOB, abdominal pain, or nausea/ vomiting. He reports a BM overnight. - Objective MAR Reviewed: Yes Vital Signs & Weight: Vital Signs (12 hours) Temp Pulse Resp BP Pulse Ox 11/01/18 07:26 97.5 F L 77 16 149/77 H 96 11/01/18 03:45 97.2 F L 75 20 149/70 H 97 Weight Weight 81.284 kg I&O: 10/31/18 11/01/18 11/02/18 06:59 06:59 06:59 Intake Total 1738 5210 Output Total 650 2475 Balance 1088 2735 Result Diagrams: 11/01/18 05:20 11/01/18 05:20 Phys Exam - Physical Examination Constitutional: NAD HEENT: moist MMs Neck: no JVD Respiratory: no wheezing, clear to auscultation bilateral Cardiovascular: RRR, no significant murmur Gastrointestinal: soft, non-tender, no distention, positive bowel sounds no erythema outside of bandaged area. serosanguineous fluid in percutaneous drain bag this AM Musculoskeletal: no edema, pulses present Neurological: normal sensation, moves all 4 limbs Psychiatric: normal affect, A&O x 3 Skin: cap refill <2 seconds Dx/Plan (1) Intra-abdominal abscess post-procedure Code(s): T81.49XA - INFECTION FOLLOWING A PROCEDURE, OTHER SURGICAL SITE, INIT Status: Acute (2) CAD (coronary artery disease) Code(s): I25.10 - ATHSCL HEART DISEASE OF [place] CORONARY ARTERY W/O ANG PCTRS Status: Chronic Qualifiers: Coronary Disease-Associated Artery/Lesion type: bypass graft [place] vs. transplanted heart: [place] heart Associated angina: without angina Qualified Code(s): I25.810 - Atherosclerosis of coronary artery bypass graft(s) without angina pectoris (3) GERD (gastroesophageal reflux disease) Code(s): K21.9 - GASTRO-ESOPHAGEAL REFLUX DISEASE WITHOUT ESOPHAGITIS Status: Chronic (4) Hypertension Code(s): I10 - ESSENTIAL (PRIMARY) HYPERTENSION Status: Chronic Qualifiers: Hypertension type: essential hypertension Qualified Code(s): I10 - Essential (primary) hypertension (5) Osteoarthritis Code(s): M19.90 - UNSPECIFIED OSTEOARTHRITIS, UNSPECIFIED SITE Status: Chronic - Plan Plan: This is an 83 yo male with apmh of HTN, GERD, CAD Sepsis 2/2 intraabdominal abscess (sepsis resolved) -VSS, WBC wnl -POD 11 Exlap with adhesion lysis for SBO -POD 1 Percutaneous drainage of intraabdominal abscess -Continue vanc and zosyn, Blood cultures 1/2 gram positive rods, will adjust abx based on sensitivities -Pending abdominal abscess cultures and sensitivities -Gen surg consulted, will appreciate recommendations Hypokalemia, resolved SBO s/p lysis of adhesions -10/21 ex lab with obstruction reduction HTN -Continue home meds BPH -Continue home meds CAD s/p CABG -Continue home meds Addendum - Attending - Attending Attestation Date/Time: 11/01/18 1107 I personally evaluated the patient and discussed the management with Dr. Moseley. I agree with the History, Examination, Assessment and Plan documented above with any addition or exceptions noted below. Patient reports doing well. No pain at this time. Continues with drain placed by IR for his abdominal abscess. Continue broad spectrum abx and await further recs from Surgery. His WBC is downtrending and afebrile.
[2018-11-01] MEDS ORDERED: PHENYLEPH PO PRN (08:01)
[2018-11-01] MEDS ORDERED: [UNRECOGNIZED DRUG - OTHER] PO PRN (08:01)
[2018-11-01] MEDS ORDERED: GUAIFEN PO PRN (08:01)
[2018-11-01] MEDS ORDERED: ACETAMINOPHN PO PRN (08:01)
[2018-11-01] MEDS: Docusate 100 MG CAP PO SCH (09:36)
[2018-11-01] MEDS: Carvedilol 3.125 MG TAB PO SCH ×2 (09:36→21:35)
[2018-11-01] MEDS: Amlodipine 5 MG TAB PO SCH (09:36)
[2018-11-01] MEDS: Ascorbic Acid 500 mg Chewable Tablet PO SCH ×2 (09:36→21:35)
[2018-11-01] MEDS: Losartan 25 MG TAB PO SCH ×2 (09:37→21:36)
[2018-11-01] MEDS: Metamucil PACK PO SCH (09:38)
[2018-11-01] MEDS: Enoxaparin Sodium 40 MG/0.4 ML SYRINGE SC SCH (09:38)
[2018-11-01] MEDS: Simethicone Chewable 80 MG TAB PO SCH ×3 (12:48→21:59)
--- NOTE | 2018-11-01 14:26 | PDOC.GSPN ---
Surgery Progress Note: Subj - Subjective Patient reports: no new complaints, feels better Surgery Progress Note: Obj - Vital signs Vital signs: Vital Signs - Most Recent Temp Pulse Resp BP Pulse Ox 97.5 F L 76 18 127/65 96 11/01/18 07:26 11/01/18 11:10 11/01/18 11:10 11/01/18 11:10 11/01/18 11:10 - Physical Exam General: no distress Abdomen: soft, nondistended Wound: dressing clean,dry,intact Surgery Progress Note: Results - Labs Result Diagrams: 11/01/18 05:20 11/01/18 05:20 Lab results: Laboratory Results - last 24 hr 10/31/18 11/01/18 11/01/18 11:10 05:20 05:20 WBC 10.0 RBC 3.87 L Hgb 11.3 L Hct 34.6 L MCV 89.5 MCH 29.3 MCHC 32.7 RDW 12.3 Plt Count 232 MPV 7.2 L Neutrophils % 63.4 Lymphocytes % 28.8 Monocytes % 5.7 Eosinophils % 0.9 Basophils % 1.2 H Neutrophils # 6.3 Lymphocytes # 2.9 Monocytes # 0.6 H Eosinophils # 0.1 Basophils # 0.1 Sodium 135 L Potassium 3.5 Chloride 101 Carbon Dioxide 26 Anion Gap 12 BUN 6 L Creatinine 0.62 L Estimated GFR (MDRD) Greater than 90 Glucose 95 Calcium 8.6 Fluid Diff Path Review - Radiology Interpretation CT scan - abdomen Status: report reviewed by me Surgery Progress Note: A/P - Problem (1) Intraabdominal fluid collection Current Visit: Yes Code(s): R18.8 - OTHER ASCITES Status: Acute Assessment and Plan: s/p perc drainage - Plan Plan: Plan transfer to surgical floor -diet as tolerated -home vs skilled in a few days
[2018-11-01 16:43] LABS: Vancomycin, Trough 15.6 ug/mL
[2018-11-01] MEDS ORDERED: traMADol HCl 50 MG TAB PO PRN ×2 (19:27)
[2018-11-01] MEDS ORDERED: Acetaminophen 325 MG TAB PO PRN (19:27)
[2018-11-01] MEDS ORDERED: Loratadine 10 MG TAB PO SCH (19:30)
[2018-11-01] MEDS: Sodium Chloride 0.9% 1,000 ML IV SCH (21:25)
[2018-11-01] MEDS: Calcium Carbonate + Vit D 1 TAB PO SCH (21:35)
[2018-11-01] MEDS: Simvastatin 5 MG TAB PO SCH (21:36)
[2018-11-02] MEDS: Piperacillin/Tazobactam 4.5 GM in Sodium Chloride 0.9% 100 ML IVPB SCH ×2 (02:56→08:13)
--- NOTE | 2018-11-02 06:15 | PDOC.FM ---
- Subjective Subjective: Pt denies any changes overnight. He denies abdominal pain, nausea, fever, or chills. - Objective MAR Reviewed: Yes Vital Signs & Weight: Vital Signs (12 hours) Temp Pulse Resp BP Pulse Ox 11/02/18 04:23 97.9 F 72 20 152/82 H 97 11/02/18 00:32 97.7 F 66 20 128/71 97 11/01/18 20:00 97.6 F 75 16 168/83 H 98 Weight Weight 81.284 kg I&O: 10/31/18 11/01/18 11/02/18 06:59 06:59 06:59 Intake Total 1738 5210 3450 Output Total 650 2475 1900 Balance 1088 2735 1550 Result Diagrams: 11/01/18 05:20 11/01/18 05:20 Phys Exam - Physical Examination Constitutional: NAD HEENT: moist MMs Neck: no JVD, full ROM Respiratory: no wheezing, clear to auscultation bilateral Cardiovascular: RRR, no significant murmur Gastrointestinal: soft, non-tender, no distention, positive bowel sounds Musculoskeletal: no edema, pulses present Neurological: moves all 4 limbs Psychiatric: A&O x 3 Skin: cap refill <2 seconds Dx/Plan (1) Intra-abdominal abscess post-procedure Code(s): T81.49XA - INFECTION FOLLOWING A PROCEDURE, OTHER SURGICAL SITE, INIT Status: Acute (2) CAD (coronary artery disease) Code(s): I25.10 - ATHSCL HEART DISEASE OF [place] CORONARY ARTERY W/O ANG PCTRS Status: Chronic Qualifiers: Coronary Disease-Associated Artery/Lesion type: bypass graft [place] vs. transplanted heart: [place] heart Associated angina: without angina Qualified Code(s): I25.810 - Atherosclerosis of coronary artery bypass graft(s) without angina pectoris (3) GERD (gastroesophageal reflux disease) Code(s): K21.9 - GASTRO-ESOPHAGEAL REFLUX DISEASE WITHOUT ESOPHAGITIS Status: Chronic (4) Hypertension Code(s): I10 - ESSENTIAL (PRIMARY) HYPERTENSION Status: Chronic Qualifiers: Hypertension type: essential hypertension Qualified Code(s): I10 - Essential (primary) hypertension (5) Osteoarthritis Code(s): M19.90 - UNSPECIFIED OSTEOARTHRITIS, UNSPECIFIED SITE Status: Chronic - Plan Plan: This is an 83 yo male with apmh of HTN, GERD, CAD Sepsis 2/2 intraabdominal abscess (sepsis resolved) -VSS, WBC wnl -POD 12 Exlap with adhesion lysis for SBO -POD 2 Percutaneous drainage of intraabdominal abscess -Continue vanc and zosyn, Blood cultures 1/2 gram positive rods, will adjust abx based on sensitivities -Pending abdominal abscess cultures and sensitivities -Gen surg consulted, will appreciate recommendations Hypokalemia, resolved SBO s/p lysis of adhesions -10/21 ex lab with obstruction reduction HTN -Continue home meds BPH -Continue home meds CAD s/p CABG -Continue home meds
[2018-11-02] MEDS: Vancomycin HCl 1.5 GM in Sodium Chloride 0.9% 250 ML 300 ML IVPB SCH (06:21)
[2018-11-02] MEDS: Enoxaparin Sodium 40 MG/0.4 ML SYRINGE SC SCH (08:14)
[2018-11-02] MEDS: Multivit, Therapeutic 1 TAB PO SCH (08:14)
[2018-11-02] MEDS: Simethicone Chewable 80 MG TAB PO SCH ×4 (08:15→20:07)
[2018-11-02] MEDS: Ascorbic Acid 500 mg Chewable Tablet PO SCH ×2 (08:15→20:06)
[2018-11-02] MEDS: Calcium Carbonate + Vit D 1 TAB PO SCH ×2 (08:15→20:06)
[2018-11-02] MEDS: Amlodipine 5 MG TAB PO SCH (08:16)
[2018-11-02] MEDS: Carvedilol 3.125 MG TAB PO SCH ×2 (08:16→20:06)
[2018-11-02] MEDS: Docusate 100 MG CAP PO SCH (08:16)
[2018-11-02] MEDS: Metamucil PACK PO SCH (08:17)
[2018-11-02] MEDS: Losartan 25 MG TAB PO SCH ×2 (08:17→20:06)
[2018-11-02 08:40] LABS: #Basophils 0.1 thou/uL (0.0-0.2); #Eosinphils 0.1 thou/uL (0.0-0.7); #Lymphocytes 3.2 thou/uL (1.20-3.40); #Monocytes 0.4 thou/uL (0.11-0.59); #Neutrophils 5.2 thou/uL (1.40-6.50); %Basophils 1.6 % (0.0-1.0); %Eosinophils 1.5 % (0.0-10.0); %Lymphocytes 35.5 % (21.0-51.0); %Monocytes 4.5 % (0.0-10.0); %Neutrophils 56.8 % (42.0-75.0); Hemoglobin 11.2 g/dL (14.0-18.0); Mean Corpuscular HGB CONC 30.7 g/dL (32.0-36.0); Mean Corpuscular Hemoglobin 27.7 pg (27.0-31.0); Mean Platelet Volume 6.5 fL (7.4-10.4); Platelet Count 297 thou/uL (130-400); RBC Distribution Width 12.2 % (11.5-14.5); Red Blood Cell (RBC) Count 4.05 mill/uL (4.70-6.10); White Blood Cell (WBC) Count 9.1 thou/uL (4.8-10.8)
[2018-11-02 08:55] LABS: Anion Gap 12 mmol/L (10-20); BUN (Urea Nitrogen) 6 mg/dL (8.4-25.7); Calc. Creatinine Clearance 87 mL/min (70-130); Carbon Dioxide 26 mmol/L (23-31); Chloride 103 mmol/L (98-107); Estimated GFR-MDRD Greater than 90; Glucose 132 mg/dL (83-110); Potassium 3.5 mmol/L (3.5-5.1); Sodium 137 mmol/L (136-145)
--- NOTE | 2018-11-02 10:11 | PDOC.GSPN ---
Surgery Progress Note: Subj - Subjective Patient reports: no new complaints Surgery Progress Note: Obj - Vital signs Vital signs: Vital Signs - Most Recent Temp Pulse Resp BP Pulse Ox 97.5 F L 78 16 155/74 H 97 11/02/18 07:26 11/02/18 08:16 11/02/18 07:26 11/02/18 08:16 11/02/18 07:26 - Physical Exam General: no distress Abdomen: soft, non tender Wound: packing in place (wound repacked) Surgery Progress Note: Results - Labs Result Diagrams: 11/02/18 08:18 11/02/18 08:18 Lab results: Laboratory Results - last 24 hr 11/02/18 11/02/18 08:18 08:18 WBC 9.1 RBC 4.05 L Hgb 11.2 L Hct 36.5 L MCV 90.0 MCH 27.7 MCHC 30.7 L RDW 12.2 Plt Count 297 MPV 6.5 L Neutrophils % 56.8 Lymphocytes % 35.5 Monocytes % 4.5 Eosinophils % 1.5 Basophils % 1.6 H Neutrophils # 5.2 Lymphocytes # 3.2 Monocytes # 0.4 Eosinophils # 0.1 Basophils # 0.1 Sodium 137 Potassium 3.5 Chloride 103 Carbon Dioxide 26 Anion Gap 12 BUN 6 L Creatinine 0.74 Estimated GFR (MDRD) Greater than 90 Glucose 132 H Calcium 9.0 - Radiology Interpretation CT scan - abdomen Status: report reviewed by me Surgery Progress Note: A/P - Problem (1) Intraabdominal fluid collection Current Visit: Yes Code(s): R18.8 - OTHER ASCITES Status: Acute - Plan Plan: Continue wound care -may be ready for dc tomorrow
[2018-11-02] MEDS: Morphine 4 MG/ML VIAL SLOW IVP PRN (11:09)
--- NOTE | 2018-11-02 14:40 | PRG ---
DATE OF SERVICE: 11/02/2018 Mr. Parikh is doing quite well following his abscess drainage under IR. He is tolerating a diet, walking in the hallway, and likely ready for discharge by tomorrow. Job ID: [id number]
[2018-11-02] MEDS: Simvastatin 5 MG TAB PO SCH (20:06)
[2018-11-02] MEDS: metroNIDAZOLE 500 MG TAB PO SCH (20:07)
[2018-11-02] MEDS: Sodium Chloride 0.9% 1,000 ML IV SCH (20:09)
[2018-11-03 05:28] LABS: Anion Gap 13 mmol/L (10-20); BUN (Urea Nitrogen) 5 mg/dL (8.4-25.7); Calc. Creatinine Clearance 93 mL/min (70-130); Calcium 9.3 mg/dL (7.8-10.44); Carbon Dioxide 26 mmol/L (23-31); Chloride 102 mmol/L (98-107); Estimated GFR-MDRD Greater than 90; Glucose 94 mg/dL (83-110); Potassium 3.7 mmol/L (3.5-5.1); Sodium 137 mmol/L (136-145)
[2018-11-03 05:58] LABS: Hypochromia SLIGHT = 6-15 cells (100X) (0-5/hpf); Lymphocytes 35 % (21-51); MDiff Complete? YES; Mean Corpuscular HGB CONC 31.3 g/dL (32.0-36.0); Mean Corpuscular Hemoglobin 28.2 pg (27.0-31.0); Mean Corpuscular Volume 89.9 fL (78.0-98.0); Mean Platelet Volume 6.7 fL (7.4-10.4); Monocytes 4 % (0-10); Neutrophil 57 % (42-75); Platelet Count 324 thou/uL (130-400); Platelet Morphology Comment Appears Adequate; RBC Distribution Width 12.3 % (11.5-14.5); Reactive Lymphocytes 4 % (0-10); White Blood Cell (WBC) Count 8.3 thou/uL (4.8-10.8)
--- NOTE | 2018-11-03 06:25 | PDOC.FM ---
- Subjective Subjective: No pain overnight. He denies CP, SOB, nausea, or vomiting. He denies abdominal pain. - Objective MAR Reviewed: Yes Vital Signs & Weight: Vital Signs (12 hours) Temp Pulse Resp BP Pulse Ox 11/03/18 03:39 97.5 F L 73 16 148/80 H 96 11/03/18 00:40 97.5 F L 71 20 150/78 H 95 11/02/18 20:38 97.9 F 72 20 148/71 H 97 11/02/18 20:06 97 Weight Admit Weight 81.284 kg Weight 81.284 kg I&O: 11/01/18 11/02/18 11/03/18 06:59 06:59 06:59 Intake Total 5210 3450 2410 Output Total 2475 1900 2200 Balance 2735 1550 210 Result Diagrams: 11/03/18 04:37 11/03/18 04:37 Phys Exam - Physical Examination Constitutional: NAD HEENT: moist MMs Neck: no JVD, full ROM Respiratory: no wheezing, clear to auscultation bilateral Cardiovascular: RRR, no significant murmur, no rub Gastrointestinal: soft, non-tender, no distention, positive bowel sounds Musculoskeletal: no edema, pulses present 1+ pitting edema Neurological: moves all 4 limbs Psychiatric: A&O x 3 Skin: cap refill <2 seconds Dx/Plan (1) Intra-abdominal abscess post-procedure Code(s): T81.49XA - INFECTION FOLLOWING A PROCEDURE, OTHER SURGICAL SITE, INIT Status: Acute (2) CAD (coronary artery disease) Code(s): I25.10 - ATHSCL HEART DISEASE OF [place] CORONARY ARTERY W/O ANG PCTRS Status: Chronic Qualifiers: Coronary Disease-Associated Artery/Lesion type: bypass graft [place] vs. transplanted heart: [place] heart Associated angina: without angina Qualified Code(s): I25.810 - Atherosclerosis of coronary artery bypass graft(s) without angina pectoris (3) GERD (gastroesophageal reflux disease) Code(s): K21.9 - GASTRO-ESOPHAGEAL REFLUX DISEASE WITHOUT ESOPHAGITIS Status: Chronic (4) Hypertension Code(s): I10 - ESSENTIAL (PRIMARY) HYPERTENSION Status: Chronic Qualifiers: Hypertension type: essential hypertension Qualified Code(s): I10 - Essential (primary) hypertension (5) Osteoarthritis Code(s): M19.90 - UNSPECIFIED OSTEOARTHRITIS, UNSPECIFIED SITE Status: Chronic - Plan Plan: This is an 83 yo male with apmh of HTN, GERD, CAD Sepsis 2/2 intraabdominal abscess (sepsis resolved) -VSS, WBC wnl -POD 13 Exlap with adhesion lysis for SBO -POD 3 Percutaneous drainage of intraabdominal abscess -Continue vanc and zosyn, Blood cultures 1/2 gram positive rods, will adjust abx based on sensitivities -Pending abdominal abscess cultures and sensitivities -Gen surg consulted, will appreciate recommendations Hypokalemia, resolved SBO s/p lysis of adhesions -10/21 ex lab with obstruction reduction HTN -Continue home meds BPH -Continue home meds CAD s/p CABG -Continue home meds Addendum - Attending - Attending Attestation Date/Time: 11/03/18 1041 I personally evaluated the patient and discussed the management with Dr. Moseley. I agree with the History, Examination, Assessment and Plan documented above with any addition or exceptions noted below. Patient doing well. Denies abdominal pain. Labs normalizing and afebrile. Awaiting further surgery recs but potential discharge home today. Drain with minimal output and tolerating diet well.
[2018-11-03] MEDS: Losartan 25 MG TAB PO SCH ×2 (09:29→21:30)
[2018-11-03] MEDS: Amlodipine 5 MG TAB PO SCH (09:30)
[2018-11-03] MEDS: Carvedilol 3.125 MG TAB PO SCH ×2 (09:31→21:30)
[2018-11-03] MEDS: metroNIDAZOLE 500 MG TAB PO SCH ×3 (09:31→21:30)
[2018-11-03] MEDS: Multivit, Therapeutic 1 TAB PO SCH (09:31)
[2018-11-03] MEDS: Calcium Carbonate + Vit D 1 TAB PO SCH ×2 (09:31→21:32)
[2018-11-03] MEDS: Ascorbic Acid 500 mg Chewable Tablet PO SCH ×2 (09:31→21:37)
[2018-11-03] MEDS: Enoxaparin Sodium 40 MG/0.4 ML SYRINGE SC SCH (09:32)
[2018-11-03] MEDS: Metamucil PACK PO SCH (09:32)
[2018-11-03] MEDS: Docusate 100 MG CAP PO SCH (09:32)
[2018-11-03] MEDS: Simethicone Chewable 80 MG TAB PO SCH ×4 (09:33→21:31)
[2018-11-03] MEDS: Morphine 4 MG/ML VIAL SLOW IVP PRN (11:07)
--- NOTE | 2018-11-03 13:06 | PDOC.GSPN ---
Surgery Progress Note: Subj - Subjective Patient reports: no new complaints Surgery Progress Note: Obj - Vital signs Vital signs: Vital Signs - Most Recent Temp Pulse Resp BP Pulse Ox 97.7 F 80 16 146/76 H 98 11/03/18 11:30 11/03/18 11:30 11/03/18 11:30 11/03/18 11:30 11/03/18 11:30 - Physical Exam General: no distress Wound: dressing clean,dry,intact Surgery Progress Note: Results - Labs Result Diagrams: 11/03/18 04:37 11/03/18 04:37 Lab results: Laboratory Results - last 24 hr 11/03/18 11/03/18 04:37 04:37 WBC 8.3 RBC 3.90 L Hgb 11.0 L Hct 35.0 L MCV 89.9 MCH 28.2 MCHC 31.3 L RDW 12.3 Plt Count 324 MPV 6.7 L Neutrophils % (Manual) 57 Lymphocytes % (Manual) 35 Reactive Lymphs % 4 Monocytes % (Manual) 4 Hypochromia SLIGHT = 6-15 cells Plt Morphology Comment Appears Adequate Sodium 137 Potassium 3.7 Chloride 102 Carbon Dioxide 26 Anion Gap 13 BUN 5 L Creatinine 0.69 L Estimated GFR (MDRD) Greater than 90 Glucose 94 Calcium 9.3 - Radiology Interpretation CT scan - abdomen Status: report reviewed by me Surgery Progress Note: A/P - Problem (1) Intraabdominal fluid collection Current Visit: Yes Code(s): R18.8 - OTHER ASCITES Status: Acute - Plan Plan: s/p Perc drainage abdominal abscess -continue wound care -still waiting on case management to see for home health- family decided on home health for dressing changes, not skilled -on oral antibiotics
[2018-11-03] MEDS: Simvastatin 5 MG TAB PO SCH (21:30)
[2018-11-03] MEDS ORDERED: Melatonin 3 MG TAB PO PRN (22:49)
[2018-11-04 05:25] LABS: #Basophils 0.1 thou/uL (0.0-0.2); #Eosinphils 0.2 thou/uL (0.0-0.7); #Lymphocytes 3.5 thou/uL (1.20-3.40); #Monocytes 0.5 thou/uL (0.11-0.59); #Neutrophils 4.3 thou/uL (1.40-6.50); %Basophils 1.4 % (0.0-1.0); %Lymphocytes 40.2 % (21.0-51.0); %Monocytes 6.1 % (0.0-10.0); %Neutrophils 50.4 % (42.0-75.0); Hemoglobin 10.8 g/dL (14.0-18.0); Mean Corpuscular HGB CONC 31.9 g/dL (32.0-36.0); Mean Corpuscular Hemoglobin 28.7 pg (27.0-31.0); Mean Platelet Volume 6.3 fL (7.4-10.4); Platelet Count 312 thou/uL (130-400); RBC Distribution Width 12.3 % (11.5-14.5); Red Blood Cell (RBC) Count 3.75 mill/uL (4.70-6.10); White Blood Cell (WBC) Count 8.6 thou/uL (4.8-10.8)
[2018-11-04 05:46] LABS: Anion Gap 10 mmol/L (10-20); BUN (Urea Nitrogen) 10 mg/dL (8.4-25.7); Calc. Creatinine Clearance 87 mL/min (70-130); Calcium 9.7 mg/dL (7.8-10.44); Carbon Dioxide 29 mmol/L (23-31); Chloride 103 mmol/L (98-107); Estimated GFR-MDRD Greater than 90; Glucose 100 mg/dL (83-110); Potassium 3.8 mmol/L (3.5-5.1); Sodium 138 mmol/L (136-145)
--- NOTE | 2018-11-04 06:12 | PDOC.FM ---
- Subjective Subjective: No complaints overnight. Pt states he is doing well. Denies abdominal pain or nausea. - Objective MAR Reviewed: Yes Vital Signs & Weight: Vital Signs (12 hours) Temp Pulse Resp BP Pulse Ox 11/04/18 04:24 97.6 F 72 16 119/71 94 L 11/04/18 00:25 97.6 F 72 16 143/77 H 95 11/03/18 20:32 98.0 F 80 16 144/78 H 97 11/03/18 20:00 97 Weight Admit Weight 81.284 kg Weight 81.284 kg I&O: 11/02/18 11/03/18 11/04/18 06:59 06:59 06:59 Intake Total 3450 2410 1017 Output Total 1900 2200 510 Balance 1550 210 507 Result Diagrams: 11/04/18 05:04 11/04/18 05:04 Phys Exam - Physical Examination Constitutional: NAD HEENT: moist MMs Neck: no JVD, full ROM Respiratory: no wheezing, no rales, clear to auscultation bilateral Cardiovascular: RRR, no significant murmur, no rub Gastrointestinal: soft, non-tender, no distention, positive bowel sounds Musculoskeletal: pulses present, edema present 1+ pitting edema to johnson Neurological: moves all 4 limbs Psychiatric: A&O x 3 Skin: cap refill <2 seconds Dx/Plan (1) Intra-abdominal abscess post-procedure Code(s): T81.49XA - INFECTION FOLLOWING A PROCEDURE, OTHER SURGICAL SITE, INIT Status: Acute (2) CAD (coronary artery disease) Code(s): I25.10 - ATHSCL HEART DISEASE OF [place] CORONARY ARTERY W/O ANG PCTRS Status: Chronic Qualifiers: Coronary Disease-Associated Artery/Lesion type: bypass graft [place] vs. transplanted heart: [place] heart Associated angina: without angina Qualified Code(s): I25.810 - Atherosclerosis of coronary artery bypass graft(s) without angina pectoris (3) GERD (gastroesophageal reflux disease) Code(s): K21.9 - GASTRO-ESOPHAGEAL REFLUX DISEASE WITHOUT ESOPHAGITIS Status: Chronic (4) Hypertension Code(s): I10 - ESSENTIAL (PRIMARY) HYPERTENSION Status: Chronic Qualifiers: Hypertension type: essential hypertension Qualified Code(s): I10 - Essential (primary) hypertension (5) Osteoarthritis Code(s): M19.90 - UNSPECIFIED OSTEOARTHRITIS, UNSPECIFIED SITE Status: Chronic - Plan Plan: This is an 83 yo male with apmh of HTN, GERD, CAD Sepsis 2/2 intraabdominal abscess (sepsis resolved) -VSS, WBC wnl -POD 14 Exlap with adhesion lysis for SBO -POD 4 Percutaneous drainage of intraabdominal abscess -Continue levoquin and metronidazole -Pending abdominal abscess cultures and sensitivities -Gen surg consulted, will appreciate recommendations Hypokalemia, resolved SBO s/p lysis of adhesions -10/21 ex lab with obstruction reduction HTN -Continue home meds BPH -Continue home meds CAD s/p CABG -Continue home meds Pending Home health wound care Addendum - Attending - Attending Attestation Date/Time: 11/04/18 1051 I personally evaluated the patient and discussed the management with Dr. Moseley. I agree with the History, Examination, Assessment and Plan documented above with any addition or exceptions noted below. Patient doing well. Has been cleared for discharge by surgery team but awaiting outpatient wound care set up. Discuss with CM but hopeful for dc today.
[2018-11-04] MEDS: Enoxaparin Sodium 40 MG/0.4 ML SYRINGE SC SCH (08:19)
[2018-11-04] MEDS: Calcium Carbonate + Vit D 1 TAB PO SCH (08:20)
[2018-11-04] MEDS: Ascorbic Acid 500 mg Chewable Tablet PO SCH (08:20)
[2018-11-04] MEDS: Docusate 100 MG CAP PO SCH (08:20)
[2018-11-04] MEDS: metroNIDAZOLE 500 MG TAB PO SCH (08:20)
[2018-11-04] MEDS: Multivit, Therapeutic 1 TAB PO SCH (08:20)
[2018-11-04] MEDS: Carvedilol 3.125 MG TAB PO SCH (08:28)
[2018-11-04] MEDS: Metamucil PACK PO SCH (08:47)
[2018-11-04] MEDS: Simethicone Chewable 80 MG TAB PO SCH (08:48)
[2018-11-04] MEDS: Amlodipine 5 MG TAB PO SCH (09:49)
[2018-11-04] MEDS: Losartan 25 MG TAB PO SCH (09:50)
[2018-11-04 11:46] VITALS: BP 138/79; TEMP 98.4
== END 2018-11-04 13:15 | disposition home or self-care (01) | DRG 862 ==
LOC: ERS 14:29 → 2NO 16:22 → SURG B 11-01 19:07
PROVIDERS: ADMIT Family Medicine; ATTEND Family Medicine
PROC: 0W9G30Z Drainage of Peritoneal Cavity with Drainage Device, Percutaneous Approach (ICD-10-PCS; principal; 2018-10-31)
DX: T81.43XA Infection following a procedure, organ and space surgical site, initial encounter (principal); A41.9 Sepsis, unspecified organism; K65.1 Peritoneal abscess; I25.10 Atherosclerotic heart disease of native coronary artery without angina pectoris; E78.5 Hyperlipidemia, unspecified; M19.90 Unspecified osteoarthritis, unspecified site; K21.9 Gastro-esophageal reflux disease without esophagitis; N40.0 Benign prostatic hyperplasia without lower urinary tract symptoms; I10 Essential (primary) hypertension; E87.6 Hypokalemia; Z90.49 Acquired absence of other specified parts of digestive tract; Z95.1 Presence of aortocoronary bypass graft; Z87.891 Personal history of nicotine dependence; Z79.899 Other long term (current) drug therapy; Y83.6 Removal of other organ (partial) (total) as the cause of abnormal reaction of the patient, or of later complication, without mention of misadventure at the time of the procedure; Z96.651 Presence of right artificial knee joint; Z90.79 Acquired absence of other genital organ(s)
CPT/HCPCS: 36415; 49020; 74177; 76380; 77002; 80048; 80053; 80202; 81003; 81015; 83605; 85025; 85060; 85610; 85730; 87040; 87070; 87076; 87077; 87086; 87186; 87205; 89051; 93005; C1729; J1650; J2250; J2270; J2543; J3010; J3370; J3480; J3490; J7050; Q9966; Q9967

== ENCOUNTER 2019-03-02 12:30 | Emergency (ER) | payer MEDICARE, BC ==
[2019-03-02 13:05] LABS: #Basophils 0.1 thou/uL (0.0-0.2); #Eosinphils 0.1 thou/uL (0.0-0.7); #Lymphocytes 5.1 thou/uL (1.20-3.40); #Monocytes 0.5 thou/uL (0.11-0.59); #Neutrophils 4.6 thou/uL (1.40-6.50); %Basophils 1.4 % (0.0-1.0); %Eosinophils 0.6 % (0.0-10.0); %Lymphocytes 48.8 % (21.0-51.0); %Monocytes 4.7 % (0.0-10.0); %Neutrophils 44.5 % (42.0-75.0); Hemoglobin 13.6 g/dL (14.0-18.0); Mean Corpuscular HGB CONC 33.9 g/dL (32.0-36.0); Mean Corpuscular Hemoglobin 30.6 pg (27.0-31.0); Mean Corpuscular Volume 90.3 fL (78.0-98.0); Mean Platelet Volume 7.5 fL (7.4-10.4); Platelet Count 136 thou/uL (130-400); RBC Distribution Width 13.6 % (11.5-14.5); Red Blood Cell (RBC) Count 4.43 mill/uL (4.70-6.10); White Blood Cell (WBC) Count 10.4 thou/uL (4.8-10.8)
[2019-03-02 13:30] LABS: ALT (SGPT) 17 U/L (8-55); AST (SGOT) 11 U/L (5-34); Albumin 4.3 g/dL (3.4-4.8); Alkaline Phosphatase 34 U/L (40-150); Anion Gap 11 mmol/L (10-20); BUN (Urea Nitrogen) 18 mg/dL (8.4-25.7); Bilirubin, Total 0.6 mg/dL (0.2-1.2); CK (CPK) 56 U/L (30-200); Calc. Creatinine Clearance 0 mL/min (70-130); Calcium 9.5 mg/dL (7.8-10.44); Carbon Dioxide 25 mmol/L (23-31); Chloride 104 mmol/L (98-107); Estimated GFR-MDRD Greater than 90; Globulin 2.4 g/dL (2.4-3.5); Glucose 99 mg/dL (83-110); Potassium 4.2 mmol/L (3.5-5.1); Protein, Total 6.7 g/dL (5.8-8.1); Sodium 136 mmol/L (136-145)
[2019-03-02 13:40] LABS: Bilirubin Negative (Negative); Blood, Urine Negative (Negative); Clarity Clear (Clear); Glucose, Urine (Dipstick) Normal (Negative); Leukocyte Negative Leu/uL (Negative); Nitrite Negative (Negative); Protein, Urine (Dipstick) Negative (Neg-Trace); Urobilinogen Normal mg/dL (Less than 2)
--- NOTE | 2019-03-05 22:33 | EKG ---
Test Reason : Blood Pressure : / mmHG Vent. Rate : 075 BPM Atrial Rate : 075 BPM P-R Int : 154 ms QRS Dur : 096 ms QT Int : 372 ms P-R-T Axes : 025 -46 067 degrees QTc Int : 415 ms Normal sinus rhythm Left axis deviation Abnormal ECG Confirmed by TYRON MOORE, JACKI Guy ([id number]), newspaper managing editor EAMON SAUNDERS ([id number]) on 03/05/2019 10:32:39 PM Referred By: Confirmed By:JACKI ACKERMAN MD
== END 2019-03-02 14:23 | disposition home or self-care (01) ==
LOC: ERS 12:30
DX: I11.0 Hypertensive heart disease with heart failure (principal); I50.9 Heart failure, unspecified; E78.5 Hyperlipidemia, unspecified; Z79.899 Other long term (current) drug therapy
CPT/HCPCS: 36415; 80053; 81003; 82550; 84484; 85025; 93005

== ENCOUNTER 2019-03-24 17:01 | Observation (INO) | payer MEDICARE, BC ==
[2019-03-24 17:31] LABS: #Basophils 0.1 thou/uL (0.0-0.2); #Eosinphils 0.1 thou/uL (0.0-0.7); #Monocytes 0.6 thou/uL (0.11-0.59); #Neutrophils 4.5 thou/uL (1.40-6.50); %Basophils 0.6 % (0.0-1.0); %Eosinophils 0.9 % (0.0-10.0); %Lymphocytes 48.8 % (21.0-51.0); %Monocytes 5.9 % (0.0-10.0); %Neutrophils 43.9 % (42.0-75.0); Hemoglobin 13.1 g/dL (14.0-18.0); Mean Corpuscular HGB CONC 33.5 g/dL (32.0-36.0); Mean Corpuscular Hemoglobin 29.9 pg (27.0-31.0); Mean Corpuscular Volume 89.4 fL (78.0-98.0); Mean Platelet Volume 7.2 fL (7.4-10.4); Platelet Count 147 thou/uL (130-400); RBC Distribution Width 12.9 % (11.5-14.5); Red Blood Cell (RBC) Count 4.39 mill/uL (4.70-6.10); White Blood Cell (WBC) Count 10.2 thou/uL (4.8-10.8)
--- NOTE | 2019-03-24 17:52 | RAD ---
SINGLE VIEW OF THE CHEST: 03/24/19 COMPARISON: 12/11/16. HISTORY: Syncope. FINDINGS: Single view of the chest shows normal sized cardiomediastinal silhouette with atherosclerotic calcifi cations in the aorta. There is no evidence of consolidation, mass or pleural effusion. IMPRESSION: No evidence of acute cardiopulmonary disease. POS: C
[2019-03-24 17:53] LABS: ALT (SGPT) 13 U/L (8-55); AST (SGOT) 10 U/L (5-34); Albumin 4.2 g/dL (3.4-4.8); Alkaline Phosphatase 35 U/L (40-110); Anion Gap 11 mmol/L (10-20); BUN (Urea Nitrogen) 17 mg/dL (8.4-25.7); Bilirubin, Total 0.5 mg/dL (0.2-1.2); CK (CPK) 70 U/L (30-200); Calc. Creatinine Clearance 0 mL/min (70-130); Calcium 9.3 mg/dL (7.8-10.44); Carbon Dioxide 26 mmol/L (23-31); Chloride 104 mmol/L (98-107); Estimated GFR-MDRD Greater than 90; Globulin 2.3 g/dL (2.4-3.5); Glucose 104 mg/dL (83-110); Potassium 3.8 mmol/L (3.5-5.1); Protein, Total 6.5 g/dL (5.8-8.1); Sodium 137 mmol/L (136-145)
--- NOTE | 2019-03-24 19:23 | CT ---
CT OF THE BRAIN WITHOUT CONTRAST: 03/24/19 COMPARISON: None. HISTORY: Syncope. TECHNIQUE: Multiple contiguous axial images were obtained in a CT of the brain without contrast. FINDINGS: There are scattered hypodensities and subcortical and periventricular white matter, likely secondary to small vessel ischemic disease. No large confluent infarction is seen. There is no evidence of hydr ocephalus, intracranial hemorrhage, or extra-axial fluid collection. The calvarium and overlying soft tissues are unremarkable. The visualized paranasal sinuses and masto id air cells are well aerated. IMPRESSION: No evidence of acute intracranial abnormality. POS: C
[2019-03-24] MEDS ORDERED: Triple Antibiotic Oint 1 GM Packet ONE (21:22)
--- NOTE | 2019-03-24 21:27 | RAD ---
Exam:Right elbow 4 views HISTORY: Multiple episodes. COMPARISON: None FINDINGS: Mild degenerative change. No joint effusion. No fracture. IMPRESSION: Degenerative change. No fracture or joint effusion.
[2019-03-24] MEDS ORDERED: Ondansetron PF 4 MG/2 ML Vial IVP PRN (22:48)
[2019-03-24] MEDS ORDERED: Acetaminophen 325 MG TAB PO PRN (22:48)
[2019-03-24] MEDS ORDERED: Ondansetron ODT 4 MG TAB SL PRN (22:48)
[2019-03-24] MEDS ORDERED: Famotidine 20 MG TAB PO PRN (23:35)
[2019-03-24 23:57] VITALS: BMI 26.5
[2019-03-25] MEDS ORDERED: Carvedilol 3.125 MG TAB PO SCH ×2 (00:15→09:00)
[2019-03-25] MEDS ORDERED: Losartan 25 MG TAB PO SCH ×6 (00:15→21:00)
[2019-03-25] MEDS: Lactated Ringer's 1,000 ML IV SCH ×2 (00:17→09:51)
--- NOTE | 2019-03-25 01:11 | PDOC.FPRHP ---
- History of Present Illness Chief Complaint: syncope and collapse History of Present Illness: Patient is a pleasant 83M with PMHx of HTN, HLD, CAD s/p CABG presenting after an episode of syncope and collapse earlier today Patient reports that he was bending down cleaning the vents in his home when he felt slight chest tightness and "warmth" before briefly losing conciousness and collapsing to the floor. He denies hitting his head, though he had a skin laceration on his R elbow. He states that this happened to him 3 weeks ago and he presented to the ED at that time and went home to f/u with his PCP Dr. Dillard. He reports that he is followed by Dr. Helton, and recently wore a heart rate monitor for 1 week that is currently being evaluated. He denies any cp, sob, vomiting at this time. Does endorse alternating constipation and diarrhea. ED Course: orthostatic vitals: laying down: 165/75, p65 sittin/79, p62 standin/86, p77 - Allergies/Adverse Reactions Allergies Allergy/AdvReac Type Severity Reaction Status Date / Time No Known Drug Allergies Allergy Verified 10/31/18 05:53 - Home Medications Medication Instructions Recorded Confirmed Type Calcium Carbonate/Vitamin D3 1 tablet PO DAILY 12/08/16 03/24/19 History [Calcium 250 + Vitamin D] Multivitamin/Iron/Folic Acid 1 tablet PO DAILY 12/08/16 03/24/19 History [Centrum Complete Multivitamin] Ascorbic Acid [Vitamin C] 1,000 mg PO BID 10/19/18 03/24/19 History Carvedilol 3.125 mg PO BID 10/19/18 03/24/19 History Chlorpheniramine Maleate 4 mg PO QID PRN 10/19/18 03/24/19 History [Chlortabs] Colestipol HCl 1 mg PO DAILY 10/19/18 03/24/19 History Losartan [Cozaar] 25 mg PO BID 10/19/18 03/24/19 History Pravastatin Sodium 20 mg PO HS 10/19/18 03/24/19 History Psyllium Husk [Metamucil] 1 tab PO DAILY 10/19/18 03/24/19 History Simethicone [Gas-X Extra Strength] 125 mg PO QID 10/19/18 03/24/19 History Fluticasone Propionate [Flonase 1 spray EA NARE DAILY 03/24/19 03/24/19 History Nasal [place]] Krill Oil/[place]-3/DHA/EPA [[place]-3 1 cap PO DAILY 03/24/19 03/24/19 History Krill Oil Softgel] Polyethylene Glycol 3350 [Miralax] 17 gm PO DAILY 03/24/19 03/24/19 History guaiFEN/Phenyleph/Acetaminophn 1 each PO PRN PRN 03/24/19 03/25/19 History [Tylenol Sinus Severe Caplet] Tamsulosin HCl [Flomax] 0.4 mg PO HS #30 cap 03/25/19 Rx - History PMHx: HTN, HLD, CAD s/p CABG PSHx: lap adhesiolysis x2 for SBO, R knee replacement, hernia repair, colectomy with ileocolostomy anastomosis, back surgery, cataract surery, L hip replacement , quadruple bi-pass + 1 stent, cholecystectomy, prostatectomy FHx: non-contributory Social: drinks glass of wine every night, quit smoking 40 years ago, denies drug use - Review of Systems General: denies: fever/chills, weight/appetite/sleep changes Eyes: denies: eye pain, vision changes ENT: denies: nasal congestion, rhinorrhea Respiratory: denies: cough, shortness of breath Cardiovascular: reports: other (chest tightness and "Warmth" at times). denies : chest pain, palpitation Gastrointestinal: reports: diarrhea, constipation. denies: nausea, vomiting Genitourinary: denies: dysuria, discharge Skin: denies: rashes, lesions Musculoskeletal: denies: pain, tenderness Neurological: reports: syncope. denies: numbness, seizure Psychological: denies: anxiety, depression - Vital signs BP: [137/67] HR: [66] RR: [20] Tmax: [98.8] Pox: [96]% on [RA] Wt: [81.51kg] - Physical Exam Constitutional: NAD, awake, alert and oriented, well developed HEENT: EOMI, conjunctiva clear, grossly normal hearing Neck: supple, trachea midline Chest: no-tender to palpation, no lesions Heart: RRR, normal S1/S2 Lungs: CTAB, no respiratory distress, good air movement Abdomen: soft, non-tender, bowel sounds present Musculoskeletal: normal structure Neurological: no focal deficit, normal sensation Skin: no jaundice -Skin: bandage over R elbow clean, dry, intact Heme/Lymphatic: no unusual bruising or bleeding, no LAD Psychiatric: normal mood and affect, good judgment and insight FMR H&P: Results - Labs Result Diagrams: 03/25/19 05:58 03/25/19 05:58 Lab results: WBC 10.2 thou/uL (4.8-10.8) 03/24/19 17:22 Hgb 13.1 g/dL (14.0-18.0) L 03/24/19 17:22 Hct 39.2 % (42.0-52.0) L 03/24/19 17:22 MCV 89.4 fL (78.0-98.0) 03/24/19 17:22 Plt Count 147 thou/uL (130-400) 03/24/19 17:22 Neutrophils % 43.9 % (42.0-75.0) 03/24/19 17:22 Sodium 137 mmol/L (136-145) 03/24/19 17:22 Potassium 3.8 mmol/L (3.5-5.1) 03/24/19 17:22 Chloride 104 mmol/L (98-107) 03/24/19 17:22 Carbon Dioxide 26 mmol/L (23-31) 03/24/19 17:22 BUN 17 mg/dL (8.4-25.7) 03/24/19 17:22 Creatinine 0.80 mg/dL (0.7-1.3) 03/24/19 17:22 Glucose 104 mg/dL (83-110) 03/24/19 17:22 Calcium 9.3 mg/dL (7.8-10.44) 03/24/19 17:22 Total Bilirubin 0.5 mg/dL (0.2-1.2) 03/24/19 17:22 AST 10 U/L (5-34) 03/24/19 17:22 ALT 13 U/L (8-55) 03/24/19 17:22 Alkaline Phosphatase 35 U/L (40-110) L 03/24/19 17:22 Creatine Kinase 70 U/L (30-200) 03/24/19 17:22 Serum Total Protein 6.5 g/dL (5.8-8.1) 03/24/19 17:22 Albumin 4.2 g/dL (3.4-4.8) 03/24/19 17:22 - EKG Interpretation EKG: Normal sinus rhythm, no ST or T wave changes - Radiology Interpretation Other Additional comment: R elbow xray: degenerative changes, no fracture or joint effusion CT scan - head Status: report reviewed by me (negative for acute intracranial process) Chest x-ray Status: report reviewed by me (no evidence of acute cardiopulmonary disease) FMR H&P: A/P - Problem List (1) Syncope and collapse Status: Acute Code(s): R55 - SYNCOPE AND COLLAPSE (2) HLD (hyperlipidemia) Status: Acute Code(s): E78.5 - HYPERLIPIDEMIA, UNSPECIFIED (3) CAD (coronary artery disease) Status: Chronic Code(s): I25.10 - ATHSCL HEART DISEASE OF [place] CORONARY ARTERY W/O ANG PCTRS Qualifiers: Coronary Disease-Associated Artery/Lesion type: bypass graft [place] vs. transplanted heart: [place] heart Associated angina: without angina Qualified Code(s): I25.810 - Atherosclerosis of coronary artery bypass graft(s) without angina pectoris (4) Hypertension Status: Chronic Code(s): I10 - ESSENTIAL (PRIMARY) HYPERTENSION Qualifiers: Hypertension type: essential hypertension Qualified Code(s): I10 - Essential (primary) hypertension - Plan Patient is a pleasant 83M with PMHx of HTN, HLD, CAD s/p CABG presenting after an episode of syncope and collapse #syncope and collapse -orthostatic vitals wnl -Head CT: no evidence of acute intracranial abnormality -patient is followed outpatient by Dr. Helton, pending heart monitor evaluation -observe patient overnight on telemetry -patient is on tamsulosin, consider changing to finasteride; hold tamsulosin for now #HTN -continue home meds #HLD -continue home meds DVT proph: lovenox Diet: HH Code: DNR Dispo: tele obs for observation of possible arrhythmia contributing to syncope, possible d/c tmrw with f/u with Dr. Helton about radiation monitor FMR H&P: [place] - Pertinent history 83 yo M with complaint of syncopal episode at home today. He has cleaning a vent and abruptly stood up. He states that he had chest tightness and warmth then slid down the wall. He has a hx of similar events in the past and is being worked up outpatient by his commercial construction estimator Dr. Mart. This work up has included a carotid Doppler, echo, and ambulatory cardiac monitoring. All has been negative to this point, however he has not seen his results of the monitor. In the ED today he was found to be in NSR and generally normal labs to include negative trops. BP was WNL as was orthostatic BP. PMHx Carpal tunnel Overactive bladder Prostate Ca Lumbar stenosis OA HTN CAD HLD BPH Surgical hx CABG x4 L hip replacement Cataract removal Colectomy w/reanastomosis Social Hx Remote smoking hx, has not smoked in 40 years 1 drink per day No recreational drugs - Pertinent findings See internal controls analyst note for full ROS, PE, vitals, and labs ROS General denies fever or chills CV Complains of chest tightness, palpitation, and syncope. Denies CP or peripheral edema Resp Denies of SOB or cough GI Denies n/v/d or abdominal pain denies increased frequency or dysuria PE General A&O x4 HEENT NCAT, PERRLA CV RRR no murmur Resp CTA Abd non tender, no distension, normal BS Neuro No focal deficits, normal strength - Plan Date/Time: 03/25/19 0110 I, Pramod Cortes DO, have evaluated this patient and agree with findings/plan as outlined by internal controls analyst resident. Pertinent changes/additions are listed here. 1.Syncopal episode -Unclear etiology, however pt is having extensive outpatient work up. Low concern for acute coronary or neurology etiology. Will admit to tele obs and expect dc in the morning. -Hold Flomax 2.HTN -Continue home meds 3.CAD -Continue home meds See internal controls analyst note for management of other chronic problems PPx SCD Diet HH Code DNR Addendum - Attending - Attending Attestation Date/Time: 03/28/19 4924 I personally evaluated the patient and discussed the management with the team on day of admission. I agree with the History, Examination, Assessment and Plan documented above with any addition or exceptions noted below. Seems to be quite clearly orthostatic. Plan for monitoring overnight and d/c in AM. Has recent TTE. No chest pain.
--- NOTE | 2019-03-25 05:50 | PDOC.FM ---
- Subjective Subjective: Patient states he was cleaning yesterday while bent over. He reports standing up , feeling completely normal, but then dropping down to the floor in a doorway. He denies any LOC when we spoke, but there were reports from LOC from his conversation with the night team. Pt states he stayed on the ground on his side for a while after the fall. Pt received a laceration over the right elbow when he fell. Pt denies any pain this morning. Pt states that he has to wear diapers for urinary incontinence. He takes flomax BID for BPH. Pt is currently under the care of Dr. Helton, who has studied a hotler monitor, carotid ultrasound and Echocardiogram. - Objective Vital Signs & Weight: Vital Signs (12 hours) Temp Pulse Resp BP BP Pulse Ox 03/25/19 04:05 96.4 F L 63 18 147/70 H 96 03/25/19 03:26 98 03/24/19 22:50 60 17 165/82 H 98 Weight Weight 81.511 kg I&O: 03/23/19 03/24/19 03/25/19 06:59 06:59 06:59 Intake Total 120 Output Total 200 Balance -80 Result Diagrams: 03/25/19 05:58 03/25/19 05:58 Phys Exam - Physical Examination Constitutional: NAD HEENT: moist MMs, sclera anicteric Neck: no nodes, no JVD, supple, full ROM Respiratory: no wheezing, no rales, no rhonchi, clear to auscultation bilateral Cardiovascular: RRR, no significant murmur, no rub soft systolic murmur Gastrointestinal: soft, non-tender, no distention, positive bowel sounds Musculoskeletal: no edema, pulses present Neurological: non-focal, normal sensation, moves all 4 limbs Psychiatric: normal affect, A&O x 3 Skin: no rash, normal turgor, cap refill <2 seconds Dx/Plan (1) HLD (hyperlipidemia) Code(s): E78.5 - HYPERLIPIDEMIA, UNSPECIFIED Status: Acute (2) Syncope and collapse Code(s): R55 - SYNCOPE AND COLLAPSE Status: Acute (3) BPH (benign prostatic hyperplasia) Code(s): N40.0 - BENIGN PROSTATIC HYPERPLASIA WITHOUT LOWER URINRY TRACT SYMP Status: Chronic Qualifiers: Lower urinary tract symptom presence: symptoms present Lower urinary tract symptom detail: post-void dribbling Qualified Code(s): N40.1 - Benign prostatic hyperplasia with lower urinary tract symptoms; N39.43 - Post-void dribbling (4) CAD (coronary artery disease) Code(s): I25.10 - ATHSCL HEART DISEASE OF [place] CORONARY ARTERY W/O ANG PCTRS Status: Chronic Qualifiers: Coronary Disease-Associated Artery/Lesion type: bypass graft [place] vs. transplanted heart: [place] heart Associated angina: without angina Qualified Code(s): I25.810 - Atherosclerosis of coronary artery bypass graft(s) without angina pectoris (5) Hypertension Code(s): I10 - ESSENTIAL (PRIMARY) HYPERTENSION Status: Chronic Qualifiers: Hypertension type: essential hypertension Qualified Code(s): I10 - Essential (primary) hypertension - Plan Plan: Patient is a pleasant 83M with PMHx of HTN, HLD, CAD s/p CABG presenting after an episode of syncope and LOC, causing ground level fall. 1. Syncope - Most likely etiology Orthostatic Hypotension, or Arrhythmia -Orthostatic vitals Positive, drop >20 in systolic BP -Head CT: no evidence of acute intracranial abnormality -patient is followed outpatient by Dr. Helton, pending heart holter monitor evaluation studied last week. -observe patient on telemetry -patient is on tamsulosin, consider changing to finasteride with side effect profile of tamsulosin causing syncope; hold tamsulosin for now 2. HTN -continue home meds Carvedilol, Losartan 3. HLD -continue home meds Pravastatin 4. Hx of CAD, S/P CABG - Stable 5. Ground Level Fall - Laceration to R- Elbow - CT head negative for acute process 6. BPH - On Tamsulosin - Hold tamsulosin DVT proph: lovenox Diet: HH Code: DNR Dispo: Stable, continue tele obs for observation of possible arrhythmia contributing to syncope, f/u with Dr. Helton about monitoring and evaluation advisor Addendum - Attending - Attending Attestation Date/Time: 03/25/19 2327 I personally evaluated the patient and discussed the management with Dr. Rogers. I agree with the History, Examination, Assessment and Plan documented above with any addition or exceptions noted below. Patient feeling improved today. He had some syncope symptoms associated with positive orthostatics. He has been fluid resuscitated, and it was determined some of his medications could be resulting in these symptoms, which have been adjusted. He is otherwise in the middle of workup outpatient with his piggery worker for his symptoms so he will be discharged to resume that workup.
[2019-03-25 06:08] LABS: #Basophils 0.1 thou/uL (0.0-0.2); #Eosinphils 0.1 thou/uL (0.0-0.7); #Lymphocytes 4.6 thou/uL (1.20-3.40); #Monocytes 0.5 thou/uL (0.11-0.59); #Neutrophils 4.7 thou/uL (1.40-6.50); %Basophils 0.9 % (0.0-1.0); %Eosinophils 0.7 % (0.0-10.0); %Lymphocytes 45.9 % (21.0-51.0); %Monocytes 5.1 % (0.0-10.0); %Neutrophils 47.4 % (42.0-75.0); Hemoglobin 13.1 g/dL (14.0-18.0); Mean Corpuscular HGB CONC 33.6 g/dL (32.0-36.0); Mean Corpuscular Hemoglobin 30.2 pg (27.0-31.0); Mean Corpuscular Volume 90.1 fL (78.0-98.0); Mean Platelet Volume 6.9 fL (7.4-10.4); Platelet Count 142 thou/uL (130-400); RBC Distribution Width 12.8 % (11.5-14.5); Red Blood Cell (RBC) Count 4.34 mill/uL (4.70-6.10); White Blood Cell (WBC) Count 9.9 thou/uL (4.8-10.8)
[2019-03-25 06:29] LABS: Anion Gap 12 mmol/L (10-20); BUN (Urea Nitrogen) 13 mg/dL (8.4-25.7); Calc. Creatinine Clearance 83 mL/min (70-130); Carbon Dioxide 26 mmol/L (23-31); Chloride 104 mmol/L (98-107); Estimated GFR-MDRD Greater than 90; Glucose 94 mg/dL (83-110); Potassium 3.7 mmol/L (3.5-5.1); Sodium 138 mmol/L (136-145)
[2019-03-25] MEDS ORDERED: DHA PO SCH (09:00)
[2019-03-25] MEDS ORDERED: Fluticasone Propionate Nasal Spray 16 gm Bottle NASAL SCH (09:00)
[2019-03-25] MEDS ORDERED: Enoxaparin Sodium 40 MG/0.4 ML SYRINGE SC SCH (09:00)
[2019-03-25] MEDS ORDERED: Calcium Carbonate + Vit D 250 MG TAB PO SCH (09:00)
[2019-03-25] MEDS ORDERED: Ascorbic Acid 500 mg Chewable Tablet PO SCH (09:00)
[2019-03-25] MEDS ORDERED: Metamucil PACK PO SCH (09:00)
[2019-03-25] MEDS ORDERED: OMEGA PO SCH (09:00)
[2019-03-25] MEDS ORDERED: Polyethylene Glycol 3350 17 GM Packet PO SCH (09:00)
[2019-03-25] MEDS ORDERED: KRILL OIL PO SCH (09:00)
[2019-03-25] MEDS ORDERED: EPA PO SCH (09:00)
[2019-03-25] MEDS ORDERED: Tamsulosin HCl 0.4 MG CAP PO SCH ×2 (09:00→21:00)
[2019-03-25] MEDS ORDERED: Multivitamin W/ Minerals 1 TAB PO SCH (09:00)
[2019-03-25] MEDS: Simethicone Chewable 80 MG TAB PO SCH ×2 (09:57→14:49)
[2019-03-25 15:26] VITALS: BP 152/70; TEMP 98.6
[2019-03-25] MEDS ORDERED: Pravastatin Sodium 20 MG TAB PO SCH (21:00)
--- NOTE | 2019-03-28 09:18 | DIS ---
DATE OF ADMISSION: 03/24/2019 DATE OF DISCHARGE: 03/25/2019 ADMITTING ATTENDING: Dr. Vega DISCHARGE ATTENDING: Dr. Hernandez RESIDENT: Claribel Rogers DO. CONSULTS: None. PROCEDURES: None. DIAGNOSES: 1. Syncope. 2. Hypertension. 3. Hyperlipidemia. 4. History of coronary artery disease, status post coronary artery bypass graft. 5. Ground level fall. 6. BPH. DISCHARGE MEDICATIONS: 1. Vitamin C 1000 mg p.o. b.i.d. 2. Vitamin D plus calcium vitamin 1 pill p.o. daily. 3. Carvedilol 3.125 mg p.o. b.i.d. 4. Clortabs 4 mg p.o. q.i.d. p.r.n. 5. Colestipol 1 g p.o. daily. 6. Flonase nasal spray 1 spray daily. 7. [place]-3 Krill oil soft gel one cap p.o. daily. 8. Cozaar 25 mg p.o. daily b.i.d. 9. Multivitamin 1 tablet daily. 10. MiraLAX 17 g p.o. daily. 11. Pravastatin 20 mg p.o. at bedtime. 12. Metamucil 0.4 g capsule p.o. daily. 13. Gas-X Extra Strength 125 mg tab 2 p.o. daily. 14. Tamsulosin 0.4 mg p.o. q.24 hours with dinner meal daily. 15. Tylenol Sinus Severe Caplet one p.o. p.r.n. Discontinued medications: Tamsulosin 0.4 mg p.o. b.i.d. HISTORY OF PRESENT ILLNESS/HOSPITAL COURSE: Mr. Parikh is an 83-year-old male who was admitted to the hospital for a workup of a syncopal episode occurring after standing from a bent-over position. He had no preceding symptoms, fell to the floor and then felt weak thereafter. The patient states this happened about 3 weeks ago. He is currently being worked up by Dr. Mart, outpatient Cardiology with Holter monitor, echocardiogram, and carotid Dopplers. I spoke with Dr. Mart today on the telephone who said that his workup has been benign outpatient and he felt comfortable following up with this patient early next week in clinic and discharging him from the hospital. Also recommended to discontinue the b.i.d. dosing of tamsulosin and only take with bedtime meal, to be less effective by this medication during the daytime. The patient had positive orthostatic blood pressure readings while in the hospital. Negative troponins. The patient was stable upon discharge and agreed with the outpatient followup plan. Counseled pt on slowing transitions to standing. DISCHARGE INSTRUCTIONS: 1. Location: To home. 2. Diet: Heart healthy. 3. Activity: As tolerated with slow movements in positional changes from seated to standing or lying to seated to decrease risk of falls. Counseled extensively on this activity change. 4. Followup with Dr. Mart next week in clinic. Follow up with Urology next week in clinic to assess urinary incontinence and other therapies and tamsulosin as the patient cannot tolerate tamsulosin with syncopal episodes. Follow up with primary care in 1 week. Job ID: [id number] MTDD
== END 2019-03-25 16:48 | disposition home or self-care (01) ==
LOC: ERS 17:01 → 2SW 21:07
PROVIDERS: ADMIT Specialist; ATTEND Specialist
DX: R55 Syncope and collapse (principal); I10 Essential (primary) hypertension; E78.5 Hyperlipidemia, unspecified; I25.10 Atherosclerotic heart disease of native coronary artery without angina pectoris; N40.1 Benign prostatic hyperplasia with lower urinary tract symptoms; N39.43 Post-void dribbling; Z79.899 Other long term (current) drug therapy; Z95.1 Presence of aortocoronary bypass graft; Z87.891 Personal history of nicotine dependence; Z90.49 Acquired absence of other specified parts of digestive tract; Z66 Do not resuscitate
CPT/HCPCS: 36415; 70450; 71045; 80048; 80053; 82550; 84484; 85025; 93005; 96361; 96372; G0378; J1650

== ENCOUNTER 2021-11-05 12:41 | Day surgery (SDC) | payer MEDICARE, BC ==
[2021-11-04 15:35] VITALS: BMI 25.8
[2021-11-05 13:16] VITALS: BP 135/72; TEMP 97.8
== END 2021-11-05 13:48 | disposition home or self-care (01) ==
LOC: ULT 12:41
PROVIDERS: ATTEND Student in an Organized Health Care Education/Training Program
DX: K11.8 Other diseases of salivary glands (principal); Z53.8 Procedure and treatment not carried out for other reasons; Z79.82 Long term (current) use of aspirin; Z79.899 Other long term (current) drug therapy; Z88.5 Allergy status to narcotic agent; Z88.8 Allergy status to other drugs, medicaments and biological substances
CPT/HCPCS: 76999

== ENCOUNTER 2022-08-12 22:01 | Emergency (ER) | payer MEDICARE, BC ==
[2022-08-12 22:52] LABS: #Eosinphils 0.1 thou/uL (0.0-0.7); #Lymphocytes 1.9 thou/uL (1.20-3.40); #Monocytes 0.5 thou/uL (0.11-0.59); #Neutrophils 4.8 thou/uL (1.40-6.50); %Basophils 0.4 % (0.0-1.0); %Lymphocytes 25.7 % (21.0-51.0); %Neutrophils 65.9 % (42.0-75.0); Hemoglobin 12.8 g/dL (14.0-18.0); Mean Corpuscular HGB CONC 33.4 g/dL (32.0-36.0); Mean Corpuscular Hemoglobin 32.2 pg (27.0-31.0); Mean Corpuscular Volume 96.6 fl (78.0-98.0); Mean Platelet Volume 7.1 fL (7.4-10.4); Platelet Count 133 10x3/uL (130-400); RBC Distribution Width 12.2 % (11.5-14.5); Red Blood Cell (RBC) Count 3.98 mill/uL (4.70-6.10); White Blood Cell (WBC) Count 7.2 10x3/uL (4.8-10.8)
[2022-08-12 23:12] LABS: ALT (SGPT) 14 U/L (8-55); AST (SGOT) 15 U/L (5-34); Albumin 4.1 g/dL (3.4-4.8); Alkaline Phosphatase 33 U/L (40-110); Anion Gap 10 mmol/L (10-20); BUN (Urea Nitrogen) 19 mg/dL (8.4-25.7); Bilirubin, Total 0.8 mg/dL (0.2-1.2); Calc. Creatinine Clearance 0 mL/min (70-130); Calcium 9.2 mg/dL (7.8-10.44); Carbon Dioxide 28 mmol/L (23-31); Chloride 104 mmol/L (98-107); Estimated GFR 87; Globulin 2.2 g/dL (2.4-3.5); Glucose 93 mg/dL (83-110); Potassium 4.5 mmol/L (3.5-5.1); Protein, Total 6.3 g/dL (5.8-8.1); Sodium 137 mmol/L (136-145)
[2022-08-13] MEDS ORDERED: Rivastigmine 1.5 MG CAP PO SCH (02:15)
[2022-08-13] MEDS ORDERED: Carvedilol 3.125 MG TAB PO SCH (02:15)
[2022-08-13] MEDS ORDERED: Losartan 25 MG TAB PO SCH (02:15)
[2022-08-13] MEDS ORDERED: Trospium 20 MG TAB PO SCH (02:15)
[2022-08-13] MEDS ORDERED: Acetaminophen 500 MG TAB ONE (02:40)
== END 2022-08-13 02:56 | disposition home or self-care (01) ==
LOC: ERS 22:01
DX: R51.9 Headache, unspecified (principal); I10 Essential (primary) hypertension; E78.5 Hyperlipidemia, unspecified; W18.30XA Fall on same level, unspecified, initial encounter; Y93.41 Activity, dancing
CPT/HCPCS: 36415; 70450; 71045; 72125; 80053; 84484; 85025; 93005